=== PATIENT | male | born 1950 | race Asian ===

== ENCOUNTER 2016-09-18 15:43 | Inpatient (IN) | payer OTHER ==
[~2016-09-18] VITALS: Ht 165.1 cm; Wt 59.8 kg
[~2016-09-18 15:43] MED LIST: ALLO100T PO; AMLO-512 PO; ASPI81 PO; B CO1CAP4 PO; CARV12 PO; CLOP75 PO; INSLAN SQ; LABE100 PO; SEVEC800 PO; SIMV40TA5 PO; SUCR500T PO; [UNRECOGNIZED DRUG - OTHER] SQ
[2016-09-18] MEDS ORDERED: CINA60TA PO (16:06)
[2016-09-18] MEDS ORDERED: TRAM50TA4 PO (16:06)
[2016-09-18] MEDS ORDERED: COLC0.6T69 PO (16:06)
[2016-09-18] MEDS ORDERED: MECL-111 PO (16:06)
[2016-09-18] MEDS ORDERED: LOSA50TA37 PO (16:06)
[2016-09-18] MEDS ORDERED: GABA-529 PO (16:06)
[2016-09-18] MEDS ORDERED: ATOR40TA28 PO (16:06)
[2016-09-18] MEDS ORDERED: MONT10TA21 PO (16:06)
[2016-09-18] MEDS ORDERED: MIRT30 PO (16:06)
[2016-09-18 16:14] LABS: BASOPHILS % (AUTO) 0.3 % (0.0-2.0); EOSINOPHILS % (AUTO) 0.4 % (1.0-6.0); HEMATOCRIT 40.9 % (41-53); HEMOGLOBIN 12.2 g/dL (13.5-17.5); LYMPHOCYTES # (AUTO) 0.6 K/uL (1.0-4.8); LYMPHOCYTES % (AUTO) 3.2 % (22.0-44.0); MEAN CORPUSCULAR HEMOGLOBIN 24.6 pg (26.0-34.0); MEAN CORPUSCULAR HGB CONC 29.8 G/dL (31.0-37.0); MEAN CORPUSCULAR VOLUME 83 fL (80-100); MONOCYTES # (AUTO) 0.6 K/uL (0.1-1.0); MONOCYTES % (AUTO) 3.2 % (2.0-9.0); NEUTROPHILS # (AUTO) 16.2 K/uL (1.8-7.7); PLATELET COUNT (AUTO) 172 K/uL (150-450); RED BLOOD CELL COUNT(AUTO) 4.94 MIL/uL (4.50-5.90); RED CELL DISTRIBUTION WIDTH 24.1 % (11.5-14.5); WHITE BLOOD COUNT (AUTO) 17.4 K/uL (4.5-11.0)
[2016-09-18] MEDS ORDERED: ACETAMINOPHEN 1000 MG/ISO-OSM 100 ML IV ONE (16:15)
[2016-09-18 16:24] LABS: NEUTROPHILS % (AUTO) 92.9 % (40.0-70.0)
[2016-09-18 16:30] LABS: RBC MORPHOLOGY COMMENT ABNORMAL RBC MORPH
[2016-09-18 16:33] LABS: LACTIC ACID 1.3 mmol/L (0.4-2.0)
[2016-09-18 16:37] LABS: CALCIUM, TOTAL 9.2 mg/dL (8.8-10.5); CREATININE 6.2 mg/dL (0.60-1.30); POTASSIUM 4.4 mmol/L (3.5-5.1)
[2016-09-18 16:42] LABS: ALBUMIN 3.1 g/dL (3.4-5.0); BILIRUBIN,TOTAL 0.7 mg/dL (0.1-1.0); TOTAL PROTEIN, SERUM 7.1 g/dL (6.4-8.2)
[2016-09-18] MEDS ORDERED: VANCOMYCIN HCL 1 GM/D5% WATER 200 ML IV ONE (16:45)
[2016-09-18] MEDS ORDERED: LEVOFLOXACIN 750 MG/D5% WATER 150 ML IV ONE (16:45)
[2016-09-18 18:09] VITALS: BP 164/70
[2016-09-18 18:51] LABS: GLUCOSE,POINT OF CARE 132 MG/DL (70-110)
[2016-09-18 19:12] VITALS: BP 155/81
[2016-09-19 00:19] VITALS: BP 154/85
[2016-09-19] MEDS ORDERED: 0.9% SODIUM CHLORIDE 10 ML SYRINGE IVP PRN (01:15)
[2016-09-19] MEDS ORDERED: DEXTROSE 50%-WATER 25 GM/50 ML SYRINGE IVP PRN (01:15)
[2016-09-19] MEDS ORDERED: VANCOMYCIN HCL 500 MG in DEXTROSE 5%-WATER 100 ML IV ONE (01:30)
[2016-09-19] MEDS ORDERED: VANCOMYCIN HCL 1 GM/D5% WATER 200 ML IV PRN ×2 (01:30→11:30)
[2016-09-19] MEDS ORDERED: SODIUM CHLORIDE 0.9% 250 ML IV ONE (01:40)
[2016-09-19] MEDS: CARVEDILOL 12.5 MG TABLET PO SCH ×3 (01:44→21:07)
[2016-09-19] MEDS: TraMADol HCL 50 MG TABLET PO SCH ×3 (01:44→21:07)
[2016-09-19] MEDS: DOCUSATE SODIUM 100 MG CAPSULE PO SCH ×3 (01:44→21:07)
[2016-09-19 04:23] VITALS: BP 167/71
[2016-09-19 05:26] LABS: GLUCOSE,POINT OF CARE 111 MG/DL (70-110)
[2016-09-19] MEDS ORDERED: PIPERACILLIN SODIUM/TAZOBACTAM 2.25 GM in DEXTROSE 5%-WATER 50 ML IV SCH (06:00)
[2016-09-19 07:11] VITALS: BP 158/75
[2016-09-19] MEDS: SEVELAMER CARBONATE 800 MG TABLET PO SCH ×3 (08:00→18:00)
[2016-09-19] MEDS: MONTELUKAST SODIUM 10 MG TABLET PO SCH (09:00)
[2016-09-19] MEDS: ATORVASTATIN CALCIUM 40 MG TABLET PO SCH (09:00)
[2016-09-19] MEDS: MIRTAZAPINE 30 MG TABLET PO SCH (09:00)
[2016-09-19] MEDS: LOSARTAN POTASSIUM 50 MG TABLET PO SCH (09:00)
[2016-09-19] MEDS ORDERED: SUCROFERRIC OXYHYDROXIDE 500 MG PO SCH (09:00)
[2016-09-19] MEDS: GABAPENTIN 100 MG CAPSULE PO SCH (09:00)
[2016-09-19] MEDS ORDERED: VITAMIN B COMP/VIT C/FOLIC ACID CAPSULE PO SCH (09:15)
[2016-09-19] MEDS: -ZOSYN NOTE- MISC SCH (09:51)
[2016-09-19] MEDS: PANTOPRAZOLE SODIUM 40 MG/VIAL IVP SCH (10:22)
[2016-09-19] MEDS: CINACALCET HCL 30 MG TABLET PO SCH ×2 (10:22→18:00)
[2016-09-19] MEDS: ASPIRIN 81 MG CHEWABLE TABLET PO SCH (10:22)
[2016-09-19] MEDS: MECLIZINE HCL 25 MG TABLET PO SCH ×4 (10:23→21:07)
[2016-09-19] MEDS: OxyCODONE HCL/ACETAMINOPHEN 5-325 MG TABLET PO PRN ×2 (10:28→16:35)
[2016-09-19 11:43] VITALS: BP 147/66
[2016-09-19] MEDS: PIPERACILLIN SODIUM/TAZOBACTAM 0.75 GM in DEXTROSE 5%-WATER 50 ML IV PRN (15:29)
[2016-09-19 16:00] VITALS: BP 144/64
[2016-09-19] MEDS: VITAMIN B COMP/VIT C/FOLIC ACID CAPSULE PO SCH (16:22)
[2016-09-19 19:10] LABS: CREATINE KINASE MB 0.7 ng/mL (0-5); CREATINE KINASE, TOTAL 95 U/L (39-308)
[2016-09-19 19:20] VITALS: BP 138/64
[2016-09-19] MEDS: INSULIN DETEMIR 100 UNITS/ML SQ SCH (21:00)
[2016-09-19] MEDS: PIPERACILLIN SODIUM/TAZOBACTAM 2.25 GM in DEXTROSE 5%-WATER 50 ML IV SCH (21:06)
[2016-09-19 22:31] LABS: GLUCOSE,POINT OF CARE 151 MG/DL (70-110)
[2016-09-20] VITALS (7 sets, daily range): BP systolic 134–159; BP diastolic 55–72
[2016-09-20] MEDS: PIPERACILLIN SODIUM/TAZOBACTAM 2.25 GM in DEXTROSE 5%-WATER 50 ML IV SCH ×2 (05:59→18:34)
[2016-09-20 06:07] LABS: GLUCOSE,POINT OF CARE 125 MG/DL (70-110)
[2016-09-20 07:24] LABS: HEMATOCRIT 37.9 % (41-53); HEMOGLOBIN 11.4 g/dL (13.5-17.5); MEAN CORPUSCULAR HEMOGLOBIN 24.9 pg (26.0-34.0); MEAN CORPUSCULAR HGB CONC 30.1 G/dL (31.0-37.0); MEAN CORPUSCULAR VOLUME 83 fL (80-100); PLATELET COUNT (AUTO) 187 K/uL (150-450); RED BLOOD CELL COUNT(AUTO) 4.57 MIL/uL (4.50-5.90); RED CELL DISTRIBUTION WIDTH 23.4 % (11.5-14.5); WHITE BLOOD COUNT (AUTO) 19.6 K/uL (4.5-11.0)
[2016-09-20 07:25] LABS: INR 1.1 (0.9-1.1); PROTHROMBIN TIME 11.9 SEC (9.4-11.6)
[2016-09-20 07:46] LABS: ANION GAP 11 mmol/L (8-16); CALCIUM, TOTAL 8.6 mg/dL (8.8-10.5); CARBON DIOXIDE 28 mmol/L (22-29); CHLORIDE 96 mmol/L (98-107); CREATINE KINASE, TOTAL 72 U/L (39-308); CREATININE 6.26 mg/dL (0.60-1.30); GLOMERULAR FILTR. RATE CALC 9 mL/min (>60); PHOSPHORUS 5.1 mg/dL (2.5-4.9); POTASSIUM 4.9 mmol/L (3.5-5.1); SODIUM SERUM 135 mmol/L (136-145); THYROID STIMULATING HORMONE 2.65 uIU/mL (0.36-3.74); TOTAL PROTEIN, SERUM 6.9 g/dL (6.4-8.2); UREA NITROGEN, BLOOD 34 mg/dL (7-18)
[2016-09-20] MEDS: SEVELAMER CARBONATE 800 MG TABLET PO SCH ×3 (08:00→18:28)
[2016-09-20 08:01] LABS: LACTATE DEHYDROGENASE 197 U/L (85-227)
[2016-09-20 08:30] LABS: BAND NEUTROPHILS % (MANUAL) 3 % (1-5); LYMPHOCYTES % (MANUAL) 6 % (22-44); REACTIVE LYMPHOCYTES 4 % (0-0); TOTAL CELLS COUNTED 100; WBC MORPHOLOGY TOXIC GRAN
[2016-09-20] MEDS: MONTELUKAST SODIUM 10 MG TABLET PO SCH (08:40)
[2016-09-20] MEDS: ASPIRIN 81 MG CHEWABLE TABLET PO SCH (08:40)
[2016-09-20] MEDS: PANTOPRAZOLE SODIUM 40 MG/VIAL IVP SCH (08:40)
[2016-09-20] MEDS: VITAMIN B COMP/VIT C/FOLIC ACID CAPSULE PO SCH (08:40)
[2016-09-20] MEDS: TraMADol HCL 50 MG TABLET PO SCH ×2 (08:40→21:29)
[2016-09-20] MEDS: CARVEDILOL 12.5 MG TABLET PO SCH ×2 (08:40→21:25)
[2016-09-20] MEDS: MIRTAZAPINE 30 MG TABLET PO SCH (08:40)
[2016-09-20] MEDS: ATORVASTATIN CALCIUM 40 MG TABLET PO SCH (08:40)
[2016-09-20] MEDS: LOSARTAN POTASSIUM 50 MG TABLET PO SCH (08:40)
[2016-09-20] MEDS: DOCUSATE SODIUM 100 MG CAPSULE PO SCH ×2 (08:40→21:24)
[2016-09-20] MEDS: MECLIZINE HCL 25 MG TABLET PO SCH ×4 (08:41→21:24)
[2016-09-20] MEDS: GABAPENTIN 100 MG CAPSULE PO SCH (08:41)
[2016-09-20] MEDS: -ZOSYN NOTE- MISC SCH (08:42)
[2016-09-20 08:50] LABS: B-TYPE NATRIURETIC PEPTIDE 1630 pg/mL (0-100)
[2016-09-20 12:10] LABS: APPEARANCE,UNSPUN,BODY FLUID CLOUDY (CLEAR); COLOR,BODY FLUID RED (LT YELLOW)
[2016-09-20 12:31] LABS: PH, BODY FLUID 7
[2016-09-20 12:37] LABS: CREATINE KINASE, TOTAL 63 U/L (39-308)
[2016-09-20] MEDS: CINACALCET HCL 30 MG TABLET PO SCH ×2 (12:46→18:28)
[2016-09-20] MEDS: CALCIUM ACETATE 667 MG CAPSULE PO SCH ×2 (12:46→18:28)
[2016-09-20 15:57] LABS: ABG A-A DIFF O2 88.9 mmHg (10-20.0); ABG BASE EXCESS -2.4 mmol/L (-2.0-3.0); ABG HCO3 22.7 mmol/L (22.0-26.0); ABG OXYHEMOGLOBIN 92.3 % (94.0-100.0); ABG PCO2 37 mmHg (35-45); ABG PH 7.403 (7.35-7.450); TEMPERATURE, FAHRENHEIT, BG 97.6 FAHREN (96.0-98.6)
[2016-09-20 15:58] LABS: ALLEN TEST, BLOOD GAS Positive
[2016-09-20] MEDS: INSULIN ASPART 100 UNITS/ML SQ PRN ×2 (18:27→21:40)
[2016-09-20] MEDS ORDERED: SODIUM CHLORIDE 0.9% 250 ML IV ONE (18:33)
[2016-09-20] MEDS: INSULIN DETEMIR 100 UNITS/ML SQ SCH (21:36)
[2016-09-21 04:35] VITALS: BP 130/55
[2016-09-21] MEDS: PIPERACILLIN SODIUM/TAZOBACTAM 2.25 GM in DEXTROSE 5%-WATER 50 ML IV SCH ×2 (05:31→17:41)
[2016-09-21 07:12] VITALS: BP 134/66
[2016-09-21 08:08] LABS: EOSINOPHILS % (AUTO) 0.8 % (1.0-6.0); HEMATOCRIT 32.6 % (41-53); HEMOGLOBIN 9.9 g/dL (13.5-17.5); LYMPHOCYTES % (AUTO) 6.5 % (22.0-44.0); MEAN CORPUSCULAR HEMOGLOBIN 24.7 pg (26.0-34.0); MEAN CORPUSCULAR HGB CONC 30.3 G/dL (31.0-37.0); MEAN CORPUSCULAR VOLUME 82 fL (80-100); MONOCYTES # (AUTO) 0.9 K/uL (0.1-1.0); MONOCYTES % (AUTO) 5.7 % (2.0-9.0); NEUTROPHILS # (AUTO) 13.8 K/uL (1.8-7.7); PLATELET COUNT (AUTO) 171 K/uL (150-450); RED CELL DISTRIBUTION WIDTH 22.6 % (11.5-14.5); WHITE BLOOD COUNT (AUTO) 15.9 K/uL (4.5-11.0)
[2016-09-21] MEDS ORDERED: ALBUMIN HUMAN 25%-12.5GM/50ML IV BOTTLE IV PRN (08:15)
[2016-09-21] MEDS ORDERED: MANNITOL 25%-12.5 GM/50 ML VIAL IVP PRN (08:15)
[2016-09-21 08:17] LABS: CREATININE 7.34 mg/dL (0.60-1.30); POTASSIUM 4.9 mmol/L (3.5-5.1)
[2016-09-21 08:18] LABS: MAGNESIUM 2.2 mg/dL (1.80-2.40); PHOSPHORUS 3.4 mg/dL (2.5-4.9)
[2016-09-21] MEDS: -ZOSYN NOTE- MISC SCH (09:00)
[2016-09-21 10:02] LABS: RBC MORPHOLOGY COMMENT ABNORMAL RBC MORPH
[2016-09-21] MEDS: SEVELAMER CARBONATE 800 MG TABLET PO SCH ×3 (10:13→17:47)
[2016-09-21] MEDS: GABAPENTIN 100 MG CAPSULE PO SCH (10:14)
[2016-09-21] MEDS: TraMADol HCL 50 MG TABLET PO SCH ×2 (10:14→21:29)
[2016-09-21] MEDS: MECLIZINE HCL 25 MG TABLET PO SCH ×4 (10:14→21:29)
[2016-09-21] MEDS: DOCUSATE SODIUM 100 MG CAPSULE PO SCH ×2 (10:14→21:29)
[2016-09-21] MEDS: CINACALCET HCL 30 MG TABLET PO SCH ×2 (10:14→17:48)
[2016-09-21] MEDS: MIRTAZAPINE 30 MG TABLET PO SCH (10:14)
[2016-09-21] MEDS: VITAMIN B COMP/VIT C/FOLIC ACID CAPSULE PO SCH (10:14)
[2016-09-21] MEDS: ATORVASTATIN CALCIUM 40 MG TABLET PO SCH (10:14)
[2016-09-21] MEDS: CALCIUM ACETATE 667 MG CAPSULE PO SCH ×3 (10:14→17:47)
[2016-09-21] MEDS: MONTELUKAST SODIUM 10 MG TABLET PO SCH (10:14)
[2016-09-21] MEDS ORDERED: SODIUM CHLORIDE 0.9% 250 ML IV ONE (10:56)
[2016-09-21] MEDS ORDERED: VANCOMYCIN HCL 1 GM/D5% WATER 200 ML IV ONE (11:00)
[2016-09-21] MEDS: PIPERACILLIN SODIUM/TAZOBACTAM 0.75 GM in DEXTROSE 5%-WATER 50 ML IV PRN (11:01)
[2016-09-21] MEDS: PANTOPRAZOLE SODIUM 40 MG/VIAL IVP SCH (11:02)
[2016-09-21] MEDS: CARVEDILOL 12.5 MG TABLET PO SCH ×2 (11:02→21:29)
[2016-09-21] MEDS: ASPIRIN 81 MG CHEWABLE TABLET PO SCH (11:02)
[2016-09-21] MEDS: LOSARTAN POTASSIUM 50 MG TABLET PO SCH (11:02)
[2016-09-21 11:23] VITALS: BP 144/64
[2016-09-21] MEDS ORDERED: BISACODYL 10 MG RECTAL RECTAL SUPPOSITORY PR PRN (13:00)
[2016-09-21 16:48] VITALS: BP 158/69
[2016-09-21 16:54] LABS: TOTAL PROTEIN,BODY FLUID,REF 4.7 g/dL
[2016-09-21] MEDS: INSULIN ASPART 100 UNITS/ML SQ PRN (17:40)
[2016-09-21 18:17] LABS: GLUCOSE,POINT OF CARE 176 MG/DL (70-110)
[2016-09-21 18:17] LABS: GLUCOSE COMMENT 1 Received Meds; GLUCOSE,POINT OF CARE 176 MG/DL (70-110)
[2016-09-21 18:17] LABS: GLUCOSE,POINT OF CARE 125 MG/DL (70-110)
[2016-09-21 18:17] LABS: GLUCOSE COMMENT 1 Received Meds; GLUCOSE,POINT OF CARE 185 MG/DL (70-110)
[2016-09-21 18:17] LABS: GLUCOSE,POINT OF CARE 66 MG/DL (70-110)
[2016-09-21 18:17] LABS: GLUCOSE,POINT OF CARE 102 MG/DL (70-110)
[2016-09-21 18:17] LABS: GLUCOSE,POINT OF CARE 104 MG/DL (70-110)
[2016-09-21 18:17] LABS: GLUCOSE COMMENT 1 Juice/Food/D50 Given; GLUCOSE,POINT OF CARE 141 MG/DL (70-110)
[2016-09-21 19:02] VITALS: BP 150/60
[2016-09-21] MEDS: INSULIN DETEMIR 100 UNITS/ML SQ SCH (21:32)
[2016-09-21 23:42] VITALS: BP 158/80
[2016-09-22] VITALS (8 sets, daily range): BP systolic 157–189; BP diastolic 68–97
[2016-09-22] MEDS: CeFAZolin 1 GM/DEXTROSE 50 ML IV SCH (05:34)
[2016-09-22] MEDS: SEVELAMER CARBONATE 800 MG TABLET PO SCH ×3 (08:11→18:29)
[2016-09-22] MEDS: CINACALCET HCL 30 MG TABLET PO SCH ×2 (08:11→18:29)
[2016-09-22] MEDS: DOCUSATE SODIUM 100 MG CAPSULE PO SCH ×2 (08:12→21:19)
[2016-09-22] MEDS: MONTELUKAST SODIUM 10 MG TABLET PO SCH (08:12)
[2016-09-22] MEDS: TraMADol HCL 50 MG TABLET PO SCH (08:12)
[2016-09-22] MEDS: LOSARTAN POTASSIUM 50 MG TABLET PO SCH (08:12)
[2016-09-22] MEDS: ATORVASTATIN CALCIUM 40 MG TABLET PO SCH (08:12)
[2016-09-22] MEDS: CALCIUM ACETATE 667 MG CAPSULE PO SCH ×3 (08:12→18:29)
[2016-09-22] MEDS: MECLIZINE HCL 25 MG TABLET PO SCH ×4 (08:13→21:19)
[2016-09-22] MEDS: VITAMIN B COMP/VIT C/FOLIC ACID CAPSULE PO SCH (08:13)
[2016-09-22] MEDS: PANTOPRAZOLE SODIUM 40 MG/VIAL IVP SCH (08:13)
[2016-09-22] MEDS: ASPIRIN 81 MG CHEWABLE TABLET PO SCH (08:13)
[2016-09-22] MEDS: MIRTAZAPINE 30 MG TABLET PO SCH (08:15)
[2016-09-22] MEDS: GABAPENTIN 100 MG CAPSULE PO SCH (08:15)
[2016-09-22] MEDS: CARVEDILOL 12.5 MG TABLET PO SCH ×2 (08:19→21:19)
[2016-09-22 09:31] LABS: CALCIUM, TOTAL 9.7 mg/dL (8.8-10.5); CREATININE 5.88 mg/dL (0.60-1.30); POTASSIUM 4.9 mmol/L (3.5-5.1)
[2016-09-22] MEDS: INSULIN ASPART 100 UNITS/ML SQ PRN (12:45)
[2016-09-22] MEDS: OxyCODONE HCL/ACETAMINOPHEN 5-325 MG TABLET PO PRN (19:53)
[2016-09-22] MEDS: INSULIN DETEMIR 100 UNITS/ML SQ SCH (21:00)
[2016-09-23] VITALS (7 sets, daily range): BP systolic 130–158; BP diastolic 35–69
[2016-09-23] MEDS: ONDANSETRON HCL 4 MG/2 ML VIAL IVP PRN (04:53)
[2016-09-23] MEDS: OxyCODONE HCL/ACETAMINOPHEN 5-325 MG TABLET PO PRN (06:10)
[2016-09-23] MEDS: CeFAZolin 1 GM/DEXTROSE 50 ML IV SCH (06:10)
[2016-09-23] MEDS: INSULIN ASPART 100 UNITS/ML SQ PRN ×2 (06:15→12:47)
[2016-09-23 06:42] LABS: GLUCOSE,POINT OF CARE 107 MG/DL (70-110)
[2016-09-23 06:42] LABS: GLUCOSE COMMENT 1 Received Meds; GLUCOSE,POINT OF CARE 161 MG/DL (70-110)
[2016-09-23 06:42] LABS: GLUCOSE,POINT OF CARE 143 MG/DL (70-110)
[2016-09-23 06:42] LABS: GLUCOSE,POINT OF CARE 99 MG/DL (70-110)
[2016-09-23 06:42] LABS: GLUCOSE COMMENT 1 Received Meds; GLUCOSE,POINT OF CARE 152 MG/DL (70-110)
[2016-09-23 06:43] LABS: GLUCOSE COMMENT 1 Received Meds; GLUCOSE,POINT OF CARE 174 MG/DL (70-110)
[2016-09-23 06:43] LABS: GLUCOSE,POINT OF CARE 104 MG/DL (70-110)
[2016-09-23 06:43] LABS: GLUCOSE,POINT OF CARE 116 MG/DL (70-110)
[2016-09-23 08:37] LABS: CALCIUM, TOTAL 9.2 mg/dL (8.8-10.5); CREATININE 7.57 mg/dL (0.60-1.30)
[2016-09-23] MEDS: VITAMIN B COMP/VIT C/FOLIC ACID CAPSULE PO SCH (08:38)
[2016-09-23] MEDS: MONTELUKAST SODIUM 10 MG TABLET PO SCH (08:38)
[2016-09-23] MEDS: CARVEDILOL 12.5 MG TABLET PO SCH ×2 (08:38→20:25)
[2016-09-23] MEDS: ATORVASTATIN CALCIUM 40 MG TABLET PO SCH (08:38)
[2016-09-23] MEDS: LOSARTAN POTASSIUM 50 MG TABLET PO SCH (08:38)
[2016-09-23] MEDS: SEVELAMER CARBONATE 800 MG TABLET PO SCH ×3 (08:38→18:23)
[2016-09-23] MEDS: CINACALCET HCL 30 MG TABLET PO SCH ×2 (08:38→18:23)
[2016-09-23] MEDS: CALCIUM ACETATE 667 MG CAPSULE PO SCH ×3 (08:38→18:23)
[2016-09-23] MEDS: GABAPENTIN 100 MG CAPSULE PO SCH (08:39)
[2016-09-23] MEDS: MIRTAZAPINE 30 MG TABLET PO SCH (08:39)
[2016-09-23] MEDS: ASPIRIN 81 MG CHEWABLE TABLET PO SCH (08:44)
[2016-09-23] MEDS: PANTOPRAZOLE SODIUM 40 MG/VIAL IVP SCH (08:44)
[2016-09-23] MEDS: MECLIZINE HCL 25 MG TABLET PO SCH ×4 (08:45→20:25)
[2016-09-23] MEDS: DOCUSATE SODIUM 100 MG CAPSULE PO SCH ×2 (08:45→21:00)
[2016-09-23 09:14] LABS: POTASSIUM 5.9 mmol/L (3.5-5.1)
[2016-09-23] MEDS: LOPERAMIDE HCL 2 MG CAPSULE PO PRN ×2 (10:58→20:25)
[2016-09-23] MEDS ORDERED: SODIUM POLYSTYRENE SULFONATE 15 GM/60 ML SUSPENSION BOTTLE PO ONE (12:15)
[2016-09-23] MEDS: MetroNIDAZOLE 500 MG TABLET PO SCH ×3 (12:41→23:31)
[2016-09-23 17:52] LABS: GLUCOSE COMMENT 1 Received Meds; GLUCOSE,POINT OF CARE 182 MG/DL (70-110)
[2016-09-23 17:53] LABS: GLUCOSE,POINT OF CARE 129 MG/DL (70-110)
[2016-09-23 18:01] LABS: GLUCOSE,POINT OF CARE 104 MG/DL (70-110)
[2016-09-23] MEDS: INSULIN DETEMIR 100 UNITS/ML SQ SCH (21:00)
[2016-09-23] MEDS ORDERED: LACTOBACILLUS ACIDOPHILUS/BULGARICUS GRANULES PACKET PO ONE (23:00)
[2016-09-24 04:29] VITALS: BP 163/73
[2016-09-24] MEDS: OxyCODONE HCL/ACETAMINOPHEN 5-325 MG TABLET PO PRN (05:29)
[2016-09-24] MEDS: CeFAZolin 1 GM/DEXTROSE 50 ML IV SCH (05:29)
[2016-09-24 06:07] LABS: CALCIUM, TOTAL 8.6 mg/dL (8.8-10.5); CREATININE 8.74 mg/dL (0.60-1.30)
[2016-09-24 06:13] LABS: BASOPHILS # (AUTO) 0.02 K/uL (0.00-0.20); BASOPHILS % (AUTO) 0.2 % (0.0-2.0); EOSINOPHILS # (AUTO) 0.33 K/uL (0.00-0.70); EOSINOPHILS % (AUTO) 3.28 % (1.0-6.0); HEMATOCRIT 37.6 % (41-53); HEMOGLOBIN 11.6 g/dL (13.5-17.5); LYMPHOCYTES # (AUTO) 1.5 K/uL (1.0-4.8); LYMPHOCYTES % (AUTO) 14.5 % (22.0-44.0); MEAN CORPUSCULAR HEMOGLOBIN 24.3 pg (26.0-34.0); MEAN CORPUSCULAR HGB CONC 30.8 G/dL (31.0-37.0); MEAN CORPUSCULAR VOLUME 79 fL (80-100); MONOCYTES # (AUTO) 1.1 K/uL (0.1-1.0); MONOCYTES % (AUTO) 10.5 % (2.0-9.0); NEUTROPHILS # (AUTO) 7.2 K/uL (1.8-7.7); NEUTROPHILS % (AUTO) 71.6 % (40.0-70.0); PLATELET COUNT (AUTO) 259 K/uL (150-450); RED BLOOD CELL COUNT(AUTO) 4.76 MIL/uL (4.50-5.90); RED CELL DISTRIBUTION WIDTH 23.4 % (11.5-14.5)
[2016-09-24] MEDS ORDERED: SODIUM CHLORIDE 0.9% 2,000 ML IV ONE (06:19)
[2016-09-24 06:22] LABS: POTASSIUM 5.9 mmol/L (3.5-5.1)
[2016-09-24] MEDS ORDERED: MANNITOL 25%-12.5 GM/50 ML VIAL IVP PRN (06:30)
[2016-09-24 07:08] VITALS: BP 162/72
[2016-09-24] MEDS: CALCIUM ACETATE 667 MG CAPSULE PO SCH ×3 (07:44→17:29)
[2016-09-24] MEDS: SEVELAMER CARBONATE 800 MG TABLET PO SCH ×3 (07:44→17:29)
[2016-09-24] MEDS: CINACALCET HCL 30 MG TABLET PO SCH (07:45)
[2016-09-24] MEDS: MetroNIDAZOLE 500 MG TABLET PO SCH ×2 (07:58→15:20)
[2016-09-24] MEDS: PANTOPRAZOLE SODIUM 40 MG/VIAL IVP SCH (08:51)
[2016-09-24] MEDS: MONTELUKAST SODIUM 10 MG TABLET PO SCH (08:51)
[2016-09-24] MEDS: LOSARTAN POTASSIUM 50 MG TABLET PO SCH (08:52)
[2016-09-24] MEDS: MECLIZINE HCL 25 MG TABLET PO SCH ×4 (08:52→20:41)
[2016-09-24] MEDS: GABAPENTIN 100 MG CAPSULE PO SCH (08:52)
[2016-09-24] MEDS: ATORVASTATIN CALCIUM 40 MG TABLET PO SCH (08:52)
[2016-09-24] MEDS: MIRTAZAPINE 30 MG TABLET PO SCH (08:52)
[2016-09-24] MEDS: ASPIRIN 81 MG CHEWABLE TABLET PO SCH (08:52)
[2016-09-24] MEDS: CARVEDILOL 12.5 MG TABLET PO SCH ×2 (08:52→20:41)
[2016-09-24] MEDS: DOCUSATE SODIUM 100 MG CAPSULE PO SCH ×2 (08:52→21:00)
[2016-09-24] MEDS: VITAMIN B COMP/VIT C/FOLIC ACID CAPSULE PO SCH (08:52)
[2016-09-24] MEDS: LACTOBACILLUS ACIDOPHILUS/BULGARICUS GRANULES PACKET PO SCH ×4 (08:55→20:40)
[2016-09-24 09:06] LABS: RBC MORPHOLOGY COMMENT ABNORMAL RBC MORPH
[2016-09-24] MEDS ORDERED: SODIUM CHLORIDE 0.9% 4,000 ML IV ONE (10:49)
[2016-09-24 11:41] VITALS: BP 155/52
[2016-09-24] MEDS: INSULIN ASPART 100 UNITS/ML SQ PRN ×2 (11:54→20:47)
[2016-09-24 16:16] VITALS: BP 134/67
[2016-09-24 17:32] LABS: GLUCOSE,POINT OF CARE 140 MG/DL (70-110)
[2016-09-24 17:32] LABS: GLUCOSE COMMENT 1 Received Meds; GLUCOSE,POINT OF CARE 125 MG/DL (70-110)
[2016-09-24 17:36] LABS: GLUCOSE COMMENT 1 Received Meds; GLUCOSE,POINT OF CARE 135 MG/DL (70-110)
[2016-09-24 20:08] VITALS: BP 156/68
[2016-09-24] MEDS: INSULIN DETEMIR 100 UNITS/ML SQ SCH (20:46)
[2016-09-24 23:43] VITALS: BP 154/60
[2016-09-25] MEDS: MetroNIDAZOLE 500 MG TABLET PO SCH ×4 (00:11→23:04)
[2016-09-25 04:01] VITALS: BP 149/63
[2016-09-25] MEDS: CeFAZolin 1 GM/DEXTROSE 50 ML IV SCH (05:47)
[2016-09-25 07:04] LABS: BASOPHILS # (AUTO) 0.09 K/uL (0.00-0.20); BASOPHILS % (AUTO) 0.7 % (0.0-2.0); EOSINOPHILS # (AUTO) 0.44 K/uL (0.00-0.70); EOSINOPHILS % (AUTO) 3.35 % (1.0-6.0); HEMATOCRIT 43.6 % (41-53); LYMPHOCYTES # (AUTO) 1.5 K/uL (1.0-4.8); LYMPHOCYTES % (AUTO) 11.5 % (22.0-44.0); MEAN CORPUSCULAR HEMOGLOBIN 23.9 pg (26.0-34.0); MEAN CORPUSCULAR HGB CONC 29.9 G/dL (31.0-37.0); MEAN CORPUSCULAR VOLUME 80 fL (80-100); MONOCYTES % (AUTO) 7.8 % (2.0-9.0); NEUTROPHILS % (AUTO) 76.6 % (40.0-70.0); PLATELET COUNT (AUTO) 291 K/uL (150-450); RED BLOOD CELL COUNT(AUTO) 5.45 MIL/uL (4.50-5.90); RED CELL DISTRIBUTION WIDTH 23.8 % (11.5-14.5); WHITE BLOOD COUNT (AUTO) 13.1 K/uL (4.5-11.0)
[2016-09-25 07:11] VITALS: BP 146/65
[2016-09-25 07:51] LABS: CREATININE 6.93 mg/dL (0.60-1.30); MAGNESIUM 2.1 mg/dL (1.80-2.40)
[2016-09-25 08:04] LABS: CALCIUM, TOTAL 8.8 mg/dL (8.8-10.5)
[2016-09-25 08:31] LABS: GLUCOSE COMMENT 1 Received Meds; GLUCOSE,POINT OF CARE 204 MG/DL (70-110)
[2016-09-25 08:36] LABS: GLUCOSE COMMENT 1 Juice/Food/D50 Given; GLUCOSE,POINT OF CARE 61 MG/DL (70-110)
[2016-09-25 08:36] LABS: GLUCOSE COMMENT 1 Juice/Food/D50 Given; GLUCOSE,POINT OF CARE 58 MG/DL (70-110)
[2016-09-25 08:36] LABS: GLUCOSE,POINT OF CARE 87 MG/DL (70-110)
[2016-09-25 08:36] LABS: GLUCOSE COMMENT 1 Juice/Food/D50 Given; GLUCOSE,POINT OF CARE 68 MG/DL (70-110)
[2016-09-25] MEDS: CALCIUM ACETATE 667 MG CAPSULE PO SCH ×3 (09:14→17:35)
[2016-09-25] MEDS: SEVELAMER CARBONATE 800 MG TABLET PO SCH ×3 (09:14→17:35)
[2016-09-25] MEDS: ASPIRIN 81 MG CHEWABLE TABLET PO SCH (09:15)
[2016-09-25] MEDS: MECLIZINE HCL 25 MG TABLET PO SCH ×2 (09:15→12:26)
[2016-09-25] MEDS: VITAMIN B COMP/VIT C/FOLIC ACID CAPSULE PO SCH (09:15)
[2016-09-25] MEDS: MIRTAZAPINE 30 MG TABLET PO SCH (09:15)
[2016-09-25] MEDS: CINACALCET HCL 30 MG TABLET PO SCH (09:15)
[2016-09-25] MEDS: DOCUSATE SODIUM 100 MG CAPSULE PO SCH (09:15)
[2016-09-25] MEDS: PANTOPRAZOLE SODIUM 40 MG/VIAL IVP SCH (09:15)
[2016-09-25] MEDS: ATORVASTATIN CALCIUM 40 MG TABLET PO SCH (09:15)
[2016-09-25] MEDS: CARVEDILOL 12.5 MG TABLET PO SCH ×2 (09:15→20:17)
[2016-09-25] MEDS: LOSARTAN POTASSIUM 50 MG TABLET PO SCH (09:15)
[2016-09-25] MEDS: GABAPENTIN 100 MG CAPSULE PO SCH (09:15)
[2016-09-25] MEDS: LACTOBACILLUS ACIDOPHILUS/BULGARICUS GRANULES PACKET PO SCH ×4 (09:16→20:18)
[2016-09-25] MEDS: MONTELUKAST SODIUM 10 MG TABLET PO SCH (09:16)
[2016-09-25 10:55] LABS: RBC MORPHOLOGY COMMENT ABNORMAL RBC MORPH
[2016-09-25 10:59] VITALS: BP 146/62
[2016-09-25] MEDS ORDERED: MECLIZINE HCL 25 MG TABLET PO PRN (16:00)
[2016-09-25 16:02] VITALS: BP 143/64
[2016-09-25] MEDS: INSULIN ASPART 100 UNITS/ML SQ PRN (18:18)
[2016-09-25 20:21] VITALS: BP 124/64
[2016-09-25] MEDS: INSULIN DETEMIR 100 UNITS/ML SQ SCH (23:06)
[2016-09-25 23:44] VITALS: BP 145/66
[2016-09-26] MEDS: ONDANSETRON HCL 4 MG/2 ML VIAL IVP PRN (01:21)
[2016-09-26 04:41] VITALS: BP 147/74
[2016-09-26] MEDS ORDERED: SODIUM CHLORIDE 0.9% 250 ML IV ONE (05:05)
[2016-09-26] MEDS: CeFAZolin 1 GM/DEXTROSE 50 ML IV SCH (05:40)
[2016-09-26 06:19] LABS: BASOPHILS % (AUTO) 0.1 % (0.0-2.0); EOSINOPHILS % (AUTO) 1.9 % (1.0-6.0); HEMATOCRIT 38.6 % (41-53); HEMOGLOBIN 11.7 g/dL (13.5-17.5); LYMPHOCYTES # (AUTO) 1.4 K/uL (1.0-4.8); LYMPHOCYTES % (AUTO) 7.2 % (22.0-44.0); MEAN CORPUSCULAR HEMOGLOBIN 24.1 pg (26.0-34.0); MEAN CORPUSCULAR HGB CONC 30.2 G/dL (31.0-37.0); MEAN CORPUSCULAR VOLUME 80 fL (80-100); MONOCYTES # (AUTO) 0.8 K/uL (0.1-1.0); MONOCYTES % (AUTO) 4.3 % (2.0-9.0); NEUTROPHILS # (AUTO) 16.6 K/uL (1.8-7.7); PLATELET COUNT (AUTO) 309 K/uL (150-450); RED BLOOD CELL COUNT(AUTO) 4.84 MIL/uL (4.50-5.90); RED CELL DISTRIBUTION WIDTH 23.3 % (11.5-14.5); WHITE BLOOD COUNT (AUTO) 19.2 K/uL (4.5-11.0)
[2016-09-26 06:32] LABS: CALCIUM, TOTAL 8.5 mg/dL (8.8-10.5); CREATININE 8.64 mg/dL (0.60-1.30); PHOSPHORUS 2.5 mg/dL (2.5-4.9); POTASSIUM 5.2 mmol/L (3.5-5.1)
[2016-09-26 06:33] LABS: MAGNESIUM 2.1 mg/dL (1.80-2.40)
[2016-09-26 06:51] LABS: NEUTROPHILS % (AUTO) 86.5 % (40.0-70.0)
[2016-09-26] MEDS: SEVELAMER CARBONATE 800 MG TABLET PO SCH ×3 (08:00→18:43)
[2016-09-26] MEDS: CALCIUM ACETATE 667 MG CAPSULE PO SCH ×3 (08:00→18:43)
[2016-09-26 08:18] VITALS: BP 153/65
[2016-09-26] MEDS ORDERED: DiphenhydrAMINE HCL 50 MG/ML VIAL IVP PRN (08:30)
[2016-09-26] MEDS ORDERED: LIDOCAINE HCL/PF 1% 2 ML VIAL ID PRN (08:30)
[2016-09-26 09:10] LABS: RBC MORPHOLOGY COMMENT ABNORMAL RBC MORPH
[2016-09-26] MEDS: MetroNIDAZOLE 500 MG TABLET PO SCH ×2 (09:58→18:42)
[2016-09-26 11:42] VITALS: BP 110/63
[2016-09-26] MEDS: CINACALCET HCL 30 MG TABLET PO SCH (12:14)
[2016-09-26] MEDS: ASPIRIN 81 MG CHEWABLE TABLET PO SCH (12:15)
[2016-09-26] MEDS: PANTOPRAZOLE SODIUM 40 MG/VIAL IVP SCH (12:15)
[2016-09-26] MEDS: ATORVASTATIN CALCIUM 40 MG TABLET PO SCH (12:15)
[2016-09-26] MEDS: LACTOBACILLUS ACIDOPHILUS/BULGARICUS GRANULES PACKET PO SCH ×4 (12:16→22:34)
[2016-09-26] MEDS: MONTELUKAST SODIUM 10 MG TABLET PO SCH (12:16)
[2016-09-26] MEDS: VITAMIN B COMP/VIT C/FOLIC ACID CAPSULE PO SCH (12:16)
[2016-09-26] MEDS: MIRTAZAPINE 30 MG TABLET PO SCH (12:17)
[2016-09-26] MEDS: CARVEDILOL 12.5 MG TABLET PO SCH ×3 (13:20→21:26)
[2016-09-26] MEDS: LOSARTAN POTASSIUM 50 MG TABLET PO SCH (13:20)
[2016-09-26] MEDS: INSULIN ASPART 100 UNITS/ML SQ PRN ×2 (18:45→21:29)
[2016-09-26 19:35] VITALS: BP 95/56
[2016-09-26] MEDS: INSULIN DETEMIR 100 UNITS/ML SQ SCH (21:00)
[2016-09-26] MEDS: MIRTAZAPINE 15 MG TABLET PO SCH (21:26)
[2016-09-26 23:57] LABS: GLUCOSE COMMENT 1 Received Meds; GLUCOSE,POINT OF CARE 201 MG/DL (70-110)
[2016-09-26 23:57] LABS: GLUCOSE COMMENT 1 Received Meds; GLUCOSE,POINT OF CARE 183 MG/DL (70-110)
[2016-09-27] VITALS (8 sets, daily range): BP systolic 103–147; BP diastolic 58–73
[2016-09-27] MEDS: MetroNIDAZOLE 500 MG TABLET PO SCH ×4 (00:25→23:44)
[2016-09-27] MEDS: CeFAZolin 1 GM/DEXTROSE 50 ML IV SCH (06:01)
[2016-09-27] MEDS ORDERED: SODIUM CHLORIDE 0.9% 250 ML IV ONE (06:06)
[2016-09-27] MEDS: INSULIN ASPART 100 UNITS/ML SQ PRN ×3 (06:08→22:03)
[2016-09-27 06:56] LABS: GLUCOSE,POINT OF CARE 173 MG/DL (70-110)
[2016-09-27 06:56] LABS: GLUCOSE,POINT OF CARE 164 MG/DL (70-110)
[2016-09-27 06:56] LABS: GLUCOSE COMMENT 1 Received Meds; GLUCOSE,POINT OF CARE 146 MG/DL (70-110)
[2016-09-27 07:21] LABS: GLUCOSE COMMENT 1 Received Meds; GLUCOSE,POINT OF CARE 151 MG/DL (70-110)
[2016-09-27] MEDS: PANTOPRAZOLE SODIUM 40 MG/VIAL IVP SCH (08:24)
[2016-09-27] MEDS: CALCIUM ACETATE 667 MG CAPSULE PO SCH ×3 (08:25→18:04)
[2016-09-27] MEDS: ATORVASTATIN CALCIUM 40 MG TABLET PO SCH (08:25)
[2016-09-27] MEDS: SEVELAMER CARBONATE 800 MG TABLET PO SCH ×3 (08:25→18:04)
[2016-09-27] MEDS: MONTELUKAST SODIUM 10 MG TABLET PO SCH (08:25)
[2016-09-27] MEDS: LACTOBACILLUS ACIDOPHILUS/BULGARICUS GRANULES PACKET PO SCH ×4 (08:25→21:58)
[2016-09-27] MEDS: VITAMIN B COMP/VIT C/FOLIC ACID CAPSULE PO SCH (08:25)
[2016-09-27] MEDS: ASPIRIN 81 MG CHEWABLE TABLET PO SCH (08:25)
[2016-09-27] MEDS: CINACALCET HCL 30 MG TABLET PO SCH (08:25)
[2016-09-27] MEDS: CARVEDILOL 12.5 MG TABLET PO SCH ×2 (08:25→21:58)
[2016-09-27] MEDS: LOSARTAN POTASSIUM 50 MG TABLET PO SCH (08:26)
[2016-09-27] MEDS ORDERED: AMIODARONE HCL 150 MG in DEXTROSE 5%-WATER 97 ML IV ONE (13:20)
[2016-09-27] MEDS ORDERED: AMIODARONE HCL 360 MG in DEXTROSE 5%-WATER 242.8 ML IV ONE (13:30)
[2016-09-27 13:56] LABS: GLUCOSE,POINT OF CARE 138 MG/DL (70-110)
[2016-09-27 17:12] LABS: BASOPHILS % (AUTO) 0.2 % (0.0-2.0); EOSINOPHILS % (AUTO) 1.7 % (1.0-6.0); HEMATOCRIT 39.6 % (41-53); LYMPHOCYTES % (AUTO) 9.8 % (22.0-44.0); MEAN CORPUSCULAR HEMOGLOBIN 23.7 pg (26.0-34.0); MEAN CORPUSCULAR HGB CONC 30.3 G/dL (31.0-37.0); MEAN CORPUSCULAR VOLUME 78 fL (80-100); MONOCYTES # (AUTO) 0.8 K/uL (0.1-1.0); MONOCYTES % (AUTO) 4.2 % (2.0-9.0); NEUTROPHILS # (AUTO) 16.8 K/uL (1.8-7.7); NEUTROPHILS % (AUTO) 84.1 % (40.0-70.0); PLATELET COUNT (AUTO) 350 K/uL (150-450); RED BLOOD CELL COUNT(AUTO) 5.06 MIL/uL (4.50-5.90); RED CELL DISTRIBUTION WIDTH 23.9 % (11.5-14.5)
[2016-09-27 17:16] LABS: CALCIUM, TOTAL 8.6 mg/dL (8.8-10.5); CREATININE 9.16 mg/dL (0.60-1.30); POTASSIUM 5.2 mmol/L (3.5-5.1)
[2016-09-27 17:24] LABS: ALBUMIN 2.3 g/dL (3.4-5.0); BILIRUBIN,TOTAL 0.3 mg/dL (0.1-1.0); TOTAL PROTEIN, SERUM 6.9 g/dL (6.4-8.2)
[2016-09-27] MEDS ORDERED: AMIODARONE HCL 540 MG in DEXTROSE 5%-WATER 239.2 ML IV ONE (19:30)
[2016-09-27] MEDS: INSULIN DETEMIR 100 UNITS/ML SQ SCH (21:00)
[2016-09-27] MEDS: MIRTAZAPINE 15 MG TABLET PO SCH (21:58)
[2016-09-27 22:46] LABS: GLUCOSE COMMENT 1 Received Meds; GLUCOSE,POINT OF CARE 215 MG/DL (70-110)
[2016-09-28 04:29] VITALS: BP 137/85
[2016-09-28] MEDS: INSULIN ASPART 100 UNITS/ML SQ PRN ×4 (06:35→20:47)
[2016-09-28 07:16] LABS: ALBUMIN 2.3 g/dL (3.4-5.0); ANION GAP 12 mmol/L (8-16); ASPARTATE AMINOTRANSFERASE 17 U/L (15-37); BILIRUBIN,TOTAL 0.4 mg/dL (0.1-1.0); CALCIUM, TOTAL 8.4 mg/dL (8.8-10.5); CARBON DIOXIDE 23 mmol/L (22-29); CHLORIDE 92 mmol/L (98-107); POTASSIUM 5.4 mmol/L (3.5-5.1); SODIUM SERUM 127 mmol/L (136-145); TOTAL PROTEIN, SERUM 6.9 g/dL (6.4-8.2); UREA NITROGEN, BLOOD 57 mg/dL (7-18)
[2016-09-28 07:25] LABS: BASOPHILS # (AUTO) 0.12 K/uL (0.00-0.20); BASOPHILS % (AUTO) 0.5 % (0.0-2.0); EOSINOPHILS # (AUTO) 0.32 K/uL (0.00-0.70); EOSINOPHILS % (AUTO) 1.47 % (1.0-6.0); HEMATOCRIT 39.6 % (41-53); HEMOGLOBIN 12.2 g/dL (13.5-17.5); LYMPHOCYTES # (AUTO) 2.1 K/uL (1.0-4.8); LYMPHOCYTES % (AUTO) 9.4 % (22.0-44.0); MEAN CORPUSCULAR HEMOGLOBIN 23.8 pg (26.0-34.0); MEAN CORPUSCULAR HGB CONC 30.7 G/dL (31.0-37.0); MEAN CORPUSCULAR VOLUME 78 fL (80-100); MONOCYTES # (AUTO) 0.9 K/uL (0.1-1.0); NEUTROPHILS # (AUTO) 18.6 K/uL (1.8-7.7); NEUTROPHILS % (AUTO) 84.6 % (40.0-70.0); PLATELET COUNT (AUTO) 333 K/uL (150-450); RED CELL DISTRIBUTION WIDTH 23.6 % (11.5-14.5)
[2016-09-28 07:29] LABS: CREATININE 9.86 mg/dL (0.60-1.30); GLOMERULAR FILTR. RATE CALC 5 mL/min (>60)
[2016-09-28 07:30] LABS: ALANINE AMINOTRANSFERASE < 6 U/L (12-78)
[2016-09-28 07:38] VITALS: BP 137/98
[2016-09-28] MEDS: MetroNIDAZOLE 500 MG TABLET PO SCH ×3 (08:00→23:46)
[2016-09-28] MEDS ORDERED: SODIUM CHLORIDE 0.9% 1,000 ML IV ONE (08:14)
[2016-09-28] MEDS: LOSARTAN POTASSIUM 50 MG TABLET PO SCH (09:00)
[2016-09-28] MEDS: CARVEDILOL 12.5 MG TABLET PO SCH ×2 (09:00→20:37)
[2016-09-28] MEDS: LACTOBACILLUS ACIDOPHILUS/BULGARICUS GRANULES PACKET PO SCH ×4 (09:00→20:37)
[2016-09-28 09:28] LABS: RBC MORPHOLOGY COMMENT ABNORMAL RBC MORPH
[2016-09-28] MEDS: SEVELAMER CARBONATE 800 MG TABLET PO SCH ×3 (10:02→18:50)
[2016-09-28] MEDS: CALCIUM ACETATE 667 MG CAPSULE PO SCH ×3 (10:02→18:50)
[2016-09-28 10:58] VITALS: BP 104/77
[2016-09-28] MEDS ORDERED: AMIODARONE HCL 750 MG in DEXTROSE 5%-WATER 485 ML IV SCH (13:00)
[2016-09-28] MEDS: MONTELUKAST SODIUM 10 MG TABLET PO SCH (13:06)
[2016-09-28] MEDS: ATORVASTATIN CALCIUM 40 MG TABLET PO SCH (13:06)
[2016-09-28] MEDS: CINACALCET HCL 30 MG TABLET PO SCH (13:07)
[2016-09-28] MEDS: VITAMIN B COMP/VIT C/FOLIC ACID CAPSULE PO SCH (13:07)
[2016-09-28] MEDS: PANTOPRAZOLE SODIUM 40 MG/VIAL IVP SCH (13:07)
[2016-09-28] MEDS: ASPIRIN 81 MG CHEWABLE TABLET PO SCH (13:07)
[2016-09-28 15:57] VITALS: BP 162/56
[2016-09-28 19:14] VITALS: BP 173/43
[2016-09-28] MEDS: CeFAZolin 2 GM/DEXTROSE 50 ML IV PRN (19:49)
[2016-09-28] MEDS: MIRTAZAPINE 15 MG TABLET PO SCH (20:37)
[2016-09-28] MEDS: INSULIN DETEMIR 100 UNITS/ML SQ SCH (20:41)
[2016-09-28 20:42] LABS: GLUCOSE,POINT OF CARE 97 MG/DL (70-110)
[2016-09-28 20:42] LABS: GLUCOSE COMMENT 1 Received Meds; GLUCOSE,POINT OF CARE 175 MG/DL (70-110)
[2016-09-28 20:42] LABS: GLUCOSE,POINT OF CARE 102 MG/DL (70-110)
[2016-09-28 20:42] LABS: GLUCOSE,POINT OF CARE 144 MG/DL (70-110)
[2016-09-28 20:42] LABS: GLUCOSE COMMENT 1 Received Meds; GLUCOSE,POINT OF CARE 189 MG/DL (70-110)
[2016-09-28 23:22] VITALS: BP 151/54
[2016-09-29 04:10] VITALS: BP 145/42
[2016-09-29] MEDS: INSULIN ASPART 100 UNITS/ML SQ PRN ×4 (06:08→20:18)
[2016-09-29 07:33] VITALS: BP 144/82
[2016-09-29] MEDS: LACTOBACILLUS ACIDOPHILUS/BULGARICUS GRANULES PACKET PO SCH ×4 (08:49→20:15)
[2016-09-29] MEDS: CINACALCET HCL 30 MG TABLET PO SCH (08:49)
[2016-09-29] MEDS: ATORVASTATIN CALCIUM 40 MG TABLET PO SCH (08:49)
[2016-09-29] MEDS: VITAMIN B COMP/VIT C/FOLIC ACID CAPSULE PO SCH (08:49)
[2016-09-29] MEDS: CARVEDILOL 12.5 MG TABLET PO SCH ×2 (08:50→20:15)
[2016-09-29] MEDS: CALCIUM ACETATE 667 MG CAPSULE PO SCH ×3 (08:50→18:28)
[2016-09-29] MEDS: LOSARTAN POTASSIUM 50 MG TABLET PO SCH (08:50)
[2016-09-29] MEDS: ASPIRIN 81 MG CHEWABLE TABLET PO SCH (08:50)
[2016-09-29] MEDS: SEVELAMER CARBONATE 800 MG TABLET PO SCH ×3 (08:50→18:28)
[2016-09-29] MEDS: PANTOPRAZOLE SODIUM 40 MG/VIAL IVP SCH (08:50)
[2016-09-29] MEDS: MetroNIDAZOLE 500 MG TABLET PO SCH ×2 (08:50→18:28)
[2016-09-29] MEDS: MONTELUKAST SODIUM 10 MG TABLET PO SCH (08:50)
[2016-09-29] MEDS: -HEMODIALYSIS NOTE- MISC SCH (09:00)
[2016-09-29 10:56] LABS: BASOPHILS # (AUTO) 0.04 K/uL (0.00-0.20); BASOPHILS % (AUTO) 0.2 % (0.0-2.0); EOSINOPHILS # (AUTO) 0.32 K/uL (0.00-0.70); HEMATOCRIT 41.3 % (41-53); HEMOGLOBIN 12.6 g/dL (13.5-17.5); LYMPHOCYTES # (AUTO) 2.1 K/uL (1.0-4.8); LYMPHOCYTES % (AUTO) 10.6 % (22.0-44.0); MEAN CORPUSCULAR HEMOGLOBIN 23.7 pg (26.0-34.0); MEAN CORPUSCULAR HGB CONC 30.5 G/dL (31.0-37.0); MEAN CORPUSCULAR VOLUME 78 fL (80-100); MONOCYTES # (AUTO) 0.9 K/uL (0.1-1.0); MONOCYTES % (AUTO) 4.8 % (2.0-9.0); NEUTROPHILS # (AUTO) 16.5 K/uL (1.8-7.7); NEUTROPHILS % (AUTO) 82.9 % (40.0-70.0); PLATELET COUNT (AUTO) 372 K/uL (150-450); RED BLOOD CELL COUNT(AUTO) 5.31 MIL/uL (4.50-5.90); RED CELL DISTRIBUTION WIDTH 23.4 % (11.5-14.5); WHITE BLOOD COUNT (AUTO) 19.9 K/uL (4.5-11.0)
[2016-09-29 11:48] VITALS: BP 164/56
[2016-09-29 12:17] LABS: RBC MORPHOLOGY COMMENT ABNORMAL RBC MORPH
[2016-09-29 16:34] VITALS: BP 178/83
[2016-09-29 19:19] VITALS: BP 173/77
[2016-09-29] MEDS: MIRTAZAPINE 15 MG TABLET PO SCH (20:15)
[2016-09-29] MEDS: INSULIN DETEMIR 100 UNITS/ML SQ SCH ×2 (20:17→20:22)
[2016-09-29 23:28] VITALS: BP 184/85
[2016-09-30] MEDS: CloNIDine HCL 0.1 MG TABLET PO PRN (00:02)
[2016-09-30] MEDS: MetroNIDAZOLE 500 MG TABLET PO SCH ×3 (00:02→15:54)
[2016-09-30] MEDS ORDERED: CloNIDine HCL 0.1 MG TABLET ONE (00:08)
[2016-09-30 04:40] VITALS: BP 147/60
[2016-09-30 06:57] LABS: GLUCOSE,POINT OF CARE 264 MG/DL (70-110)
[2016-09-30 06:57] LABS: GLUCOSE COMMENT 1 Received Meds; GLUCOSE,POINT OF CARE 200 MG/DL (70-110)
[2016-09-30 06:57] LABS: GLUCOSE COMMENT 1 Received Meds; GLUCOSE,POINT OF CARE 144 MG/DL (70-110)
[2016-09-30 06:57] LABS: GLUCOSE,POINT OF CARE 130 MG/DL (70-110)
[2016-09-30 07:01] LABS: GLUCOSE COMMENT 1 Received Meds; GLUCOSE,POINT OF CARE 196 MG/DL (70-110)
[2016-09-30 07:02] LABS: GLUCOSE,POINT OF CARE 139 MG/DL (70-110)
[2016-09-30 07:07] VITALS: BP 168/72
[2016-09-30 07:38] LABS: BASOPHILS % (AUTO) 0.3 % (0.0-2.0); EOSINOPHILS % (AUTO) 1.6 % (1.0-6.0); HEMATOCRIT 38.2 % (41-53); HEMOGLOBIN 11.6 g/dL (13.5-17.5); LYMPHOCYTES # (AUTO) 1.8 K/uL (1.0-4.8); LYMPHOCYTES % (AUTO) 9.7 % (22.0-44.0); MEAN CORPUSCULAR HEMOGLOBIN 24.1 pg (26.0-34.0); MEAN CORPUSCULAR HGB CONC 30.3 G/dL (31.0-37.0); MEAN CORPUSCULAR VOLUME 80 fL (80-100); MONOCYTES # (AUTO) 0.6 K/uL (0.1-1.0); MONOCYTES % (AUTO) 3.3 % (2.0-9.0); NEUTROPHILS # (AUTO) 16.1 K/uL (1.8-7.7); PLATELET COUNT (AUTO) 324 K/uL (150-450); RED CELL DISTRIBUTION WIDTH 23.5 % (11.5-14.5)
[2016-09-30 07:51] LABS: CALCIUM, TOTAL 8.2 mg/dL (8.8-10.5); CREATININE 9.32 mg/dL (0.60-1.30); MAGNESIUM 1.9 mg/dL (1.80-2.40); PHOSPHORUS 2.1 mg/dL (2.5-4.9); POTASSIUM 5.9 mmol/L (3.5-5.1)
[2016-09-30] MEDS: SEVELAMER CARBONATE 800 MG TABLET PO SCH (08:00)
[2016-09-30] MEDS: LOSARTAN POTASSIUM 50 MG TABLET PO SCH (08:43)
[2016-09-30] MEDS: VITAMIN B COMP/VIT C/FOLIC ACID CAPSULE PO SCH (08:43)
[2016-09-30] MEDS: PANTOPRAZOLE SODIUM 40 MG/VIAL IVP SCH (08:43)
[2016-09-30] MEDS: CARVEDILOL 12.5 MG TABLET PO SCH ×2 (08:43→20:06)
[2016-09-30] MEDS: CINACALCET HCL 30 MG TABLET PO SCH (08:43)
[2016-09-30] MEDS: ASPIRIN 81 MG CHEWABLE TABLET PO SCH (08:43)
[2016-09-30] MEDS: ATORVASTATIN CALCIUM 40 MG TABLET PO SCH (08:43)
[2016-09-30] MEDS: MONTELUKAST SODIUM 10 MG TABLET PO SCH (08:43)
[2016-09-30] MEDS: LACTOBACILLUS ACIDOPHILUS/BULGARICUS GRANULES PACKET PO SCH ×4 (08:44→20:06)
[2016-09-30] MEDS: -HEMODIALYSIS NOTE- MISC SCH (08:52)
[2016-09-30 09:08] LABS: NEUTROPHILS % (AUTO) 85.1 % (40.0-70.0)
[2016-09-30] MEDS ORDERED: SODIUM POLYSTYRENE SULFONATE 15 GM/60 ML SUSPENSION BOTTLE PO ONE (09:45)
[2016-09-30 11:40] VITALS: BP 169/66
[2016-09-30] MEDS: INSULIN ASPART 100 UNITS/ML SQ PRN ×2 (12:01→18:17)
[2016-09-30 12:12] VITALS: BP 150/78
[2016-09-30 15:14] VITALS: BP 159/58
[2016-09-30 17:36] LABS: GLUCOSE,POINT OF CARE 156 MG/DL (70-110)
[2016-09-30 19:47] VITALS: BP 200/88
[2016-09-30] MEDS: MIRTAZAPINE 15 MG TABLET PO SCH (20:06)
[2016-09-30] MEDS: INSULIN DETEMIR 100 UNITS/ML SQ SCH (21:00)
[2016-10-01] VITALS (8 sets, daily range): BP systolic 123–187; BP diastolic 56–83
[2016-10-01] MEDS: MetroNIDAZOLE 500 MG TABLET PO SCH ×3 (00:11→18:37)
[2016-10-01] MEDS: CloNIDine HCL 0.1 MG TABLET PO PRN (03:13)
[2016-10-01] MEDS: INSULIN ASPART 100 UNITS/ML SQ PRN ×4 (06:18→20:53)
[2016-10-01 06:28] LABS: BASOPHILS # (AUTO) 0.11 K/uL (0.00-0.20); BASOPHILS % (AUTO) 0.6 % (0.0-2.0); EOSINOPHILS # (AUTO) 0.21 K/uL (0.00-0.70); EOSINOPHILS % (AUTO) 1.01 % (1.0-6.0); HEMATOCRIT 37.6 % (41-53); HEMOGLOBIN 11.7 g/dL (13.5-17.5); LYMPHOCYTES % (AUTO) 9.5 % (22.0-44.0); MEAN CORPUSCULAR HEMOGLOBIN 24.1 pg (26.0-34.0); MEAN CORPUSCULAR HGB CONC 30.9 G/dL (31.0-37.0); MEAN CORPUSCULAR VOLUME 78 fL (80-100); MONOCYTES # (AUTO) 0.4 K/uL (0.1-1.0); MONOCYTES % (AUTO) 1.8 % (2.0-9.0); PLATELET COUNT (AUTO) 373 K/uL (150-450); RED BLOOD CELL COUNT(AUTO) 4.83 MIL/uL (4.50-5.90); RED CELL DISTRIBUTION WIDTH 23.5 % (11.5-14.5); WHITE BLOOD COUNT (AUTO) 20.6 K/uL (4.5-11.0)
[2016-10-01 06:48] LABS: CALCIUM, TOTAL 8.2 mg/dL (8.8-10.5); CREATININE 10.95 mg/dL (0.60-1.30); MAGNESIUM 1.9 mg/dL (1.80-2.40); PHOSPHORUS 2.9 mg/dL (2.5-4.9); POTASSIUM 5.4 mmol/L (3.5-5.1)
[2016-10-01 06:49] LABS: NEUTROPHILS % (AUTO) 87.2 % (40.0-70.0)
[2016-10-01] MEDS ORDERED: SODIUM CHLORIDE 0.9% 2,000 ML IV ONE (07:59)
[2016-10-01] MEDS: PANTOPRAZOLE SODIUM 40 MG/VIAL IVP SCH (08:01)
[2016-10-01] MEDS: LACTOBACILLUS ACIDOPHILUS/BULGARICUS GRANULES PACKET PO SCH ×4 (08:01→20:50)
[2016-10-01] MEDS: VITAMIN B COMP/VIT C/FOLIC ACID CAPSULE PO SCH (08:02)
[2016-10-01] MEDS: MONTELUKAST SODIUM 10 MG TABLET PO SCH (08:02)
[2016-10-01] MEDS: ATORVASTATIN CALCIUM 40 MG TABLET PO SCH (08:02)
[2016-10-01] MEDS ORDERED: ALBUMIN HUMAN 25%-12.5GM/50ML IV BOTTLE IV PRN (09:00)
[2016-10-01] MEDS: -HEMODIALYSIS NOTE- MISC SCH (09:00)
[2016-10-01] MEDS ORDERED: MANNITOL 25%-12.5 GM/50 ML VIAL IVP PRN (09:00)
[2016-10-01 11:25] LABS: RBC MORPHOLOGY COMMENT ABNORMAL RBC MORPH
[2016-10-01] MEDS: CeFAZolin 2 GM/DEXTROSE 50 ML IV PRN (11:52)
[2016-10-01] MEDS: LOSARTAN POTASSIUM 50 MG TABLET PO SCH (11:54)
[2016-10-01] MEDS: CARVEDILOL 12.5 MG TABLET PO SCH ×2 (11:55→20:50)
[2016-10-01] MEDS: CINACALCET HCL 30 MG TABLET PO SCH (11:55)
[2016-10-01] MEDS: ASPIRIN 81 MG CHEWABLE TABLET PO SCH (11:55)
[2016-10-01 12:01] LABS: GLUCOSE COMMENT 1 Received Meds; GLUCOSE,POINT OF CARE 145 MG/DL (70-110)
[2016-10-01] MEDS ORDERED: ALBUMIN HUMAN 25%-12.5GM/50ML IV BOTTLE IV ONE (16:58)
[2016-10-01] MEDS ORDERED: MANNITOL 25%-12.5 GM/50 ML VIAL IVP ONE (16:58)
[2016-10-01 20:01] LABS: GLUCOSE COMMENT 1 Received Meds; GLUCOSE,POINT OF CARE 168 MG/DL (70-110)
[2016-10-01 20:01] LABS: GLUCOSE,POINT OF CARE 208 MG/DL (70-110)
[2016-10-01 20:06] LABS: GLUCOSE,POINT OF CARE 273 MG/DL (70-110)
[2016-10-01 20:06] LABS: GLUCOSE,POINT OF CARE 182 MG/DL (70-110)
[2016-10-01 20:07] LABS: GLUCOSE,POINT OF CARE 277 MG/DL (70-110)
[2016-10-01] MEDS: MIRTAZAPINE 15 MG TABLET PO SCH (20:50)
[2016-10-01] MEDS: VANCOMYCIN HCL 125 MG/2.5 ML SOLUTION ORAL.SYG PO SCH (20:50)
[2016-10-01] MEDS: INSULIN DETEMIR 100 UNITS/ML SQ SCH (20:52)
[2016-10-02] MEDS: VANCOMYCIN HCL 125 MG/2.5 ML SOLUTION ORAL.SYG PO SCH ×5 (00:09→23:37)
[2016-10-02 04:55] VITALS: BP 144/56
[2016-10-02 05:51] LABS: GLUCOSE COMMENT 1 Received Meds; GLUCOSE,POINT OF CARE 112 MG/DL (70-110)
[2016-10-02] MEDS: VITAMIN B COMP/VIT C/FOLIC ACID CAPSULE PO SCH (08:36)
[2016-10-02] MEDS: CINACALCET HCL 30 MG TABLET PO SCH (08:36)
[2016-10-02] MEDS: LOSARTAN POTASSIUM 50 MG TABLET PO SCH (08:36)
[2016-10-02] MEDS: CARVEDILOL 12.5 MG TABLET PO SCH ×2 (08:36→20:01)
[2016-10-02] MEDS: ATORVASTATIN CALCIUM 40 MG TABLET PO SCH (08:36)
[2016-10-02] MEDS: ASPIRIN 81 MG CHEWABLE TABLET PO SCH (08:36)
[2016-10-02] MEDS: MONTELUKAST SODIUM 10 MG TABLET PO SCH (08:36)
[2016-10-02] MEDS: LACTOBACILLUS ACIDOPHILUS/BULGARICUS GRANULES PACKET PO SCH ×4 (08:36→20:01)
[2016-10-02] MEDS: PANTOPRAZOLE SODIUM 40 MG/VIAL IVP SCH (08:37)
[2016-10-02] MEDS: -HEMODIALYSIS NOTE- MISC SCH (08:37)
[2016-10-02 08:41] LABS: BASOPHILS % (AUTO) 0.2 % (0.0-2.0); EOSINOPHILS % (AUTO) 0.9 % (1.0-6.0); HEMOGLOBIN 12.1 g/dL (13.5-17.5); LYMPHOCYTES # (AUTO) 1.9 K/uL (1.0-4.8); LYMPHOCYTES % (AUTO) 9.6 % (22.0-44.0); MEAN CORPUSCULAR HEMOGLOBIN 23.8 pg (26.0-34.0); MEAN CORPUSCULAR HGB CONC 30.3 G/dL (31.0-37.0); MEAN CORPUSCULAR VOLUME 78 fL (80-100); MONOCYTES # (AUTO) 0.7 K/uL (0.1-1.0); MONOCYTES % (AUTO) 3.5 % (2.0-9.0); PLATELET COUNT (AUTO) 369 K/uL (150-450); RED BLOOD CELL COUNT(AUTO) 5.11 MIL/uL (4.50-5.90); RED CELL DISTRIBUTION WIDTH 24.1 % (11.5-14.5); WHITE BLOOD COUNT (AUTO) 19.9 K/uL (4.5-11.0)
[2016-10-02 08:42] LABS: NEUTROPHILS % (AUTO) 85.8 % (40.0-70.0)
[2016-10-02 08:43] LABS: RBC MORPHOLOGY COMMENT ABNORMAL RBC MORPH
[2016-10-02 08:51] VITALS: BP 164/103
[2016-10-02 09:41] LABS: GLUCOSE COMMENT 1 Received Meds; GLUCOSE,POINT OF CARE 147 MG/DL (70-110)
[2016-10-02 09:41] LABS: GLUCOSE COMMENT 1 Received Meds; GLUCOSE,POINT OF CARE 250 MG/DL (70-110)
[2016-10-02 09:41] LABS: GLUCOSE COMMENT 1 Received Meds; GLUCOSE,POINT OF CARE 237 MG/DL (70-110)
[2016-10-02] MEDS: INSULIN ASPART 100 UNITS/ML SQ PRN ×3 (11:59→20:14)
[2016-10-02 12:08] VITALS: BP 165/67
[2016-10-02 15:30] VITALS: BP 157/88
[2016-10-02] MEDS: MIRTAZAPINE 15 MG TABLET PO SCH (20:01)
[2016-10-02] MEDS: INSULIN DETEMIR 100 UNITS/ML SQ SCH (20:11)
[2016-10-02 20:17] VITALS: BP 180/69
[2016-10-02 22:41] LABS: GLUCOSE,POINT OF CARE 261 MG/DL (70-110)
[2016-10-02 22:41] LABS: GLUCOSE COMMENT 1 Received Meds; GLUCOSE,POINT OF CARE 201 MG/DL (70-110)
[2016-10-02 22:41] LABS: GLUCOSE COMMENT 1 Received Meds; GLUCOSE,POINT OF CARE 158 MG/DL (70-110)
[2016-10-03] VITALS (7 sets, daily range): BP systolic 103–177; BP diastolic 40–84
[2016-10-03] MEDS: VANCOMYCIN HCL 125 MG/2.5 ML SOLUTION ORAL.SYG PO SCH ×3 (05:32→17:28)
[2016-10-03 05:41] LABS: GLUCOSE,POINT OF CARE 112 MG/DL (70-110)
[2016-10-03 06:31] LABS: CALCIUM, TOTAL 8.1 mg/dL (8.8-10.5); CREATININE 10.48 mg/dL (0.60-1.30); MAGNESIUM 1.8 mg/dL (1.80-2.40); PHOSPHORUS 4.6 mg/dL (2.5-4.9); POTASSIUM 5.1 mmol/L (3.5-5.1)
[2016-10-03] MEDS: MONTELUKAST SODIUM 10 MG TABLET PO SCH (08:41)
[2016-10-03] MEDS: ASPIRIN 81 MG CHEWABLE TABLET PO SCH (08:41)
[2016-10-03] MEDS: ATORVASTATIN CALCIUM 40 MG TABLET PO SCH (08:41)
[2016-10-03] MEDS: CINACALCET HCL 30 MG TABLET PO SCH (08:42)
[2016-10-03] MEDS: LACTOBACILLUS ACIDOPHILUS/BULGARICUS GRANULES PACKET PO SCH ×4 (08:42→21:13)
[2016-10-03] MEDS: PANTOPRAZOLE SODIUM 40 MG/VIAL IVP SCH (08:44)
[2016-10-03] MEDS: -HEMODIALYSIS NOTE- MISC SCH (09:00)
[2016-10-03] MEDS: CARVEDILOL 12.5 MG TABLET PO SCH ×2 (12:18→21:13)
[2016-10-03 12:50] LABS: GLUCOSE,POINT OF CARE 135 MG/DL (70-110)
[2016-10-03] MEDS ORDERED: MANNITOL 25%-12.5 GM/50 ML VIAL IVP PRN (13:15)
[2016-10-03] MEDS ORDERED: ALBUMIN HUMAN 25%-12.5GM/50ML IV BOTTLE IV PRN (13:15)
[2016-10-03] MEDS: VITAMIN B COMP/VIT C/FOLIC ACID CAPSULE PO SCH (16:39)
[2016-10-03] MEDS: CeFAZolin 2 GM/DEXTROSE 50 ML IV PRN (16:39)
[2016-10-03] MEDS: LOSARTAN POTASSIUM 50 MG TABLET PO SCH (16:39)
[2016-10-03] MEDS ORDERED: SODIUM CHLORIDE 0.9% 250 ML IV ONE (16:50)
[2016-10-03] MEDS: INSULIN ASPART 100 UNITS/ML SQ PRN ×2 (17:28→21:21)
[2016-10-03 18:51] LABS: GLUCOSE COMMENT 1 Received Meds; GLUCOSE,POINT OF CARE 150 MG/DL (70-110)
[2016-10-03] MEDS: MIRTAZAPINE 15 MG TABLET PO SCH (21:12)
[2016-10-03] MEDS: INSULIN DETEMIR 100 UNITS/ML SQ SCH (21:20)
[2016-10-04] MEDS: VANCOMYCIN HCL 125 MG/2.5 ML SOLUTION ORAL.SYG PO SCH ×4 (00:39→16:36)
[2016-10-04 05:10] VITALS: BP 136/51
[2016-10-04] MEDS: INSULIN ASPART 100 UNITS/ML SQ PRN ×3 (06:35→18:07)
[2016-10-04 07:07] LABS: BASOPHILS # (AUTO) 0.04 K/uL (0.00-0.20); BASOPHILS % (AUTO) 0.3 % (0.0-2.0); EOSINOPHILS % (AUTO) 0.71 % (1.0-6.0); HEMATOCRIT 39.7 % (41-53); HEMOGLOBIN 12.1 g/dL (13.5-17.5); LYMPHOCYTES # (AUTO) 1.4 K/uL (1.0-4.8); LYMPHOCYTES % (AUTO) 9.4 % (22.0-44.0); MEAN CORPUSCULAR HEMOGLOBIN 23.7 pg (26.0-34.0); MEAN CORPUSCULAR HGB CONC 30.5 G/dL (31.0-37.0); MEAN CORPUSCULAR VOLUME 78 fL (80-100); MONOCYTES # (AUTO) 0.8 K/uL (0.1-1.0); MONOCYTES % (AUTO) 5.6 % (2.0-9.0); NEUTROPHILS # (AUTO) 12.1 K/uL (1.8-7.7); NEUTROPHILS % (AUTO) 84.1 % (40.0-70.0); PLATELET COUNT (AUTO) 348 K/uL (150-450); WHITE BLOOD COUNT (AUTO) 14.4 K/uL (4.5-11.0)
[2016-10-04 07:12] LABS: GLUCOSE COMMENT 1 Received Meds; GLUCOSE,POINT OF CARE 153 MG/DL (70-110)
[2016-10-04 07:40] VITALS: BP 132/65
[2016-10-04] MEDS: LACTOBACILLUS ACIDOPHILUS/BULGARICUS GRANULES PACKET PO SCH ×3 (08:36→16:36)
[2016-10-04] MEDS: ATORVASTATIN CALCIUM 40 MG TABLET PO SCH (08:36)
[2016-10-04] MEDS: CINACALCET HCL 30 MG TABLET PO SCH (08:36)
[2016-10-04] MEDS: ASPIRIN 81 MG CHEWABLE TABLET PO SCH (08:37)
[2016-10-04] MEDS: MONTELUKAST SODIUM 10 MG TABLET PO SCH (08:37)
[2016-10-04] MEDS: CARVEDILOL 12.5 MG TABLET PO SCH (08:37)
[2016-10-04] MEDS: VITAMIN B COMP/VIT C/FOLIC ACID CAPSULE PO SCH (08:37)
[2016-10-04] MEDS: LOSARTAN POTASSIUM 50 MG TABLET PO SCH (08:37)
[2016-10-04] MEDS: PANTOPRAZOLE SODIUM 40 MG/VIAL IVP SCH (08:40)
[2016-10-04] MEDS: -HEMODIALYSIS NOTE- MISC SCH (09:00)
[2016-10-04 09:33] LABS: RBC MORPHOLOGY COMMENT ABNORMAL RBC MORPH
[2016-10-04 11:00] VITALS: BP 157/68
[2016-10-04 16:14] VITALS: BP 148/84
[2016-10-04] MEDS ORDERED: INSLAN SQ ×2 (17:24→17:27)
[2016-10-04 18:27] LABS: GLUCOSE COMMENT 1 Received Meds; GLUCOSE,POINT OF CARE 209 MG/DL (70-110)
[2016-10-07 11:57] LABS: GLUCOSE,POINT OF CARE 144 MG/DL (70-110)
[2016-10-07 11:57] LABS: GLUCOSE COMMENT 1 Received Meds; GLUCOSE,POINT OF CARE 227 MG/DL (70-110)
== END 2016-10-04 18:50 | disposition home or self-care (01) | DRG 871 ==
LOC: EMS 15:46 → 5N 17:07 → 5S 09-30 21:30
PROVIDERS: ADMIT Internal Medicine; ATTEND Internal Medicine
PROC: 5A1D60Z (ICD-10-PCS; principal; 2016-09-18)
PROC: 0W9B3ZZ Drainage of Left Pleural Cavity, Percutaneous Approach (ICD-10-PCS; 2016-09-20)
DX: A41.9 Sepsis, unspecified organism (principal); J18.9 Pneumonia, unspecified organism; I50.23 Acute on chronic systolic (congestive) heart failure; N18.6 End stage renal disease; E43 Unspecified severe protein-calorie malnutrition; J90 Pleural effusion, not elsewhere classified; E46 Unspecified protein-calorie malnutrition; J98.11 Atelectasis; E87.1 Hypo-osmolality and hyponatremia; I13.2 Hypertensive heart and chronic kidney disease with heart failure and with stage 5 chronic kidney disease, or end stage renal disease; A04.7 Enterocolitis due to Clostridium difficile; M10.9 Gout, unspecified; B96.89 Other specified bacterial agents as the cause of diseases classified elsewhere; B95.61 Methicillin susceptible Staphylococcus aureus infection as the cause of diseases classified elsewhere; D50.9 Iron deficiency anemia, unspecified; E87.5 Hyperkalemia; E11.21 Type 2 diabetes mellitus with diabetic nephropathy; E11.22 Type 2 diabetes mellitus with diabetic chronic kidney disease; E78.00 Pure hypercholesterolemia, unspecified; E78.5 Hyperlipidemia, unspecified; I25.10 Atherosclerotic heart disease of native coronary artery without angina pectoris; J45.909 Unspecified asthma, uncomplicated; Z95.1 Presence of aortocoronary bypass graft; Z87.01 Personal history of pneumonia (recurrent); Z68.21 Body mass index [BMI] 21.0-21.9, adult; Z86.73 Personal history of transient ischemic attack (TIA), and cerebral infarction without residual deficits; Z99.2 Dependence on renal dialysis; Z79.4 Long term (current) use of insulin; Z88.1 Allergy status to other antibiotic agents; Z79.82 Long term (current) use of aspirin; Z79.899 Other long term (current) drug therapy; Z83.3 Family history of diabetes mellitus; Z82.49 Family history of ischemic heart disease and other diseases of the circulatory system
CPT/HCPCS: 32555; 71260; 74000; 76942; 82465; 82805; 82945; 82962; 83605; 83615; 83735; 83970; 83986; 84100; 84132; 84146; 84155; 84157; 84443; 85651; 86140; 87015; 87040; 87070; 87081; 87101; 87205; 87324; 87340; 87449; 88108; 89051; 90935; 93005; 93306; 96365; 96367; 96375; 99291; C9113; J0131; J0282; J0690; J1956; J2150; J2405; J2543; J3370; J7030; J7050; J7060; P9047

== ENCOUNTER 2016-10-31 01:12 | Emergency (ER) | payer OTHER ==
[~2016-10-31] VITALS: Ht 165.1 cm; Wt 59.0 kg
[~2016-10-31 01:12] MED LIST changes: -AMLO-512 PO; +ATOR40TA28 PO; +CINA60TA PO; -CLOP75 PO; -LABE100 PO; +LOSA50TA37 PO; +MIRT30 PO; +MONT10TA21 PO; -SIMV40TA5 PO; -SUCR500T PO; -[UNRECOGNIZED DRUG - OTHER] SQ
[2016-10-31 01:27] LABS: GLUCOSE COMMENT 1 Doctor Notified; GLUCOSE,POINT OF CARE 112 MG/DL (70-110)
[2016-10-31 02:08] LABS: ANION GAP 7 mmol/L (8-16); CALCIUM, TOTAL 10.5 mg/dL (8.8-10.5); CARBON DIOXIDE 31 mmol/L (22-29); CHLORIDE 99 mmol/L (98-107); CREATININE 7.42 mg/dL (0.60-1.30); GLOMERULAR FILTR. RATE CALC 7 mL/min (>60); POTASSIUM 5.6 mmol/L (3.5-5.1); SODIUM SERUM 137 mmol/L (136-145); UREA NITROGEN, BLOOD 49 mg/dL (7-18)
[2016-10-31 02:13] LABS: ALANINE AMINOTRANSFERASE 19 U/L (12-78); ASPARTATE AMINOTRANSFERASE 20 U/L (15-37); BASOPHILS # (AUTO) 0.04 K/uL (0.00-0.20); BASOPHILS % (AUTO) 0.4 % (0.0-2.0); BILIRUBIN,TOTAL 0.4 mg/dL (0.1-1.0); CREATINE KINASE, TOTAL 56 U/L (39-308); EOSINOPHILS # (AUTO) 0.35 K/uL (0.00-0.70); EOSINOPHILS % (AUTO) 3.64 % (1.0-6.0); HEMATOCRIT 38.6 % (41-53); HEMOGLOBIN 11.9 g/dL (13.5-17.5); LYMPHOCYTES # (AUTO) 2.2 K/uL (1.0-4.8); LYMPHOCYTES % (AUTO) 22.7 % (22.0-44.0); MEAN CORPUSCULAR HEMOGLOBIN 24.1 pg (26.0-34.0); MEAN CORPUSCULAR HGB CONC 30.9 G/dL (31.0-37.0); MEAN CORPUSCULAR VOLUME 78 fL (80-100); MONOCYTES # (AUTO) 0.9 K/uL (0.1-1.0); MONOCYTES % (AUTO) 9.1 % (2.0-9.0); NEUTROPHILS # (AUTO) 6.1 K/uL (1.8-7.7); NEUTROPHILS % (AUTO) 64.2 % (40.0-70.0); PLATELET COUNT (AUTO) 210 K/uL (150-450); RED BLOOD CELL COUNT(AUTO) 4.94 MIL/uL (4.50-5.90); RED CELL DISTRIBUTION WIDTH 22.5 % (11.5-14.5); TOTAL PROTEIN, SERUM 7.9 g/dL (6.4-8.2); WHITE BLOOD COUNT (AUTO) 9.5 K/uL (4.5-11.0)
[2016-10-31 02:32] LABS: PROTHROMBIN TIME 10.9 SEC (9.4-11.6)
[2016-10-31 02:40] LABS: B-TYPE NATRIURETIC PEPTIDE 1780 pg/mL (0-100)
[2016-10-31] MEDS ORDERED: SODIUM POLYSTYRENE SULFONATE 15 GM/60 ML SUSPENSION BOTTLE PO ONE (03:15)
[2016-10-31 03:35] VITALS: BP 189/76
[2016-10-31 04:56] LABS: RBC MORPHOLOGY COMMENT ABNORMAL RBC MORPH
== END 2016-10-31 03:44 | disposition home or self-care (01) ==
LOC: EMS 01:14
DX: I12.0 Hypertensive chronic kidney disease with stage 5 chronic kidney disease or end stage renal disease (principal); N18.6 End stage renal disease; E11.22 Type 2 diabetes mellitus with diabetic chronic kidney disease; E87.5 Hyperkalemia; J45.909 Unspecified asthma, uncomplicated; Z99.2 Dependence on renal dialysis; Z79.4 Long term (current) use of insulin; Z88.1 Allergy status to other antibiotic agents
CPT/HCPCS: 82962; 93005; 99285

== ENCOUNTER 2017-07-16 07:22 | Inpatient (IN) | payer OTHER ==
[~2017-07-16] VITALS: Ht 170.2 cm; Wt 61.2 kg
[2017-07-16 09:08] LABS: GLUCOSE,POINT OF CARE 177 MG/DL (70-110)
[2017-07-16 09:39] LABS: BASOPHILS % (AUTO) 0.1 % (0.0-2.0); EOSINOPHILS % (AUTO) 0.7 % (1.0-6.0); HEMATOCRIT 33.4 % (41-53); HEMOGLOBIN 10.7 g/dL (13.5-17.5); LYMPHOCYTES % (AUTO) 8.9 % (22.0-44.0); MEAN CORPUSCULAR HEMOGLOBIN 24.4 pg (26.0-34.0); MEAN CORPUSCULAR VOLUME 76 fL (80-100); MONOCYTES # (AUTO) 1.1 K/uL (0.1-1.0); MONOCYTES % (AUTO) 10.1 % (2.0-9.0); NEUTROPHILS # (AUTO) 8.7 K/uL (1.8-7.7); NEUTROPHILS % (AUTO) 80.2 % (40.0-70.0); PLATELET COUNT (AUTO) 267 K/uL (150-450); RED BLOOD CELL COUNT(AUTO) 4.38 MIL/uL (4.50-5.90); RED CELL DISTRIBUTION WIDTH 18.8 % (11.5-14.5); WHITE BLOOD COUNT (AUTO) 10.8 K/uL (4.5-11.0)
[2017-07-16 09:50] LABS: ANION GAP 11 mmol/L (8-16); CALCIUM, TOTAL 10.4 mg/dL (8.8-10.5); CARBON DIOXIDE 31 mmol/L (22-29); CHLORIDE 94 mmol/L (98-107); CREATININE 5.66 mg/dL (0.60-1.30); GLOMERULAR FILTR. RATE CALC 10 mL/min (>60); SODIUM SERUM 136 mmol/L (136-145); UREA NITROGEN, BLOOD 26 mg/dL (7-18)
[2017-07-16 09:53] LABS: INR 1.1 (0.9-1.1); PROTHROMBIN TIME 11.4 SEC (9.4-11.6)
[2017-07-16 10:05] LABS: RBC MORPHOLOGY COMMENT ABNORMAL RBC MORPH
[2017-07-16 10:06] LABS: B-TYPE NATRIURETIC PEPTIDE 1300 pg/mL (0-100)
[2017-07-16 10:15] LABS: ALANINE AMINOTRANSFERASE 43 U/L (12-78); ALBUMIN 2.7 g/dL (3.4-5.0); ASPARTATE AMINOTRANSFERASE 25 U/L (15-37); BILIRUBIN,TOTAL 0.6 mg/dL (0.1-1.0); CREATINE KINASE MB 1.7 ng/mL (0-5); CREATINE KINASE, TOTAL 111 U/L (39-308); TOTAL PROTEIN, SERUM 8.1 g/dL (6.4-8.2)
[2017-07-16 13:50] VITALS: BP 169/68
[2017-07-16 15:21] LABS: PROCALCITONIN (PCT) 0.61 ng/mL (<0.50)
[2017-07-16 16:22] LABS: INFLUENZA TYPE B NEGATIVE FOR TYPE B (NEGATIVE)
[2017-07-16 16:25] VITALS: BP 144/63
[2017-07-16] MEDS ORDERED: DEXTROSE 50%-WATER 25 GM/50 ML SYRINGE IVP PRN (18:15)
[2017-07-16] MEDS: INSULIN ASPART 100 UNITS/ML SQ PRN ×2 (18:20→20:37)
[2017-07-16] MEDS: CINACALCET HCL 30 MG TABLET PO SCH (18:21)
[2017-07-16] MEDS: SEVELAMER CARBONATE 800 MG TABLET PO SCH (18:21)
[2017-07-16 19:20] LABS: APPEARANCE,UNSPUN,BODY FLUID CLOUDY (CLEAR); COLOR,BODY FLUID YELLOW (LT YELLOW)
[2017-07-16 19:44] VITALS: BP 156/70
[2017-07-16] MEDS: CARVEDILOL 12.5 MG TABLET PO SCH (20:33)
[2017-07-16] MEDS: INSULIN DETEMIR 100 UNITS/ML SQ SCH (21:23)
[2017-07-16] MEDS ORDERED: OxyCODONE HCL/ACETAMINOPHEN 5-325 MG TABLET PO PRN (23:00)
[2017-07-16] MEDS ORDERED: 0.9% SODIUM CHLORIDE 10 ML SYRINGE IVP PRN (23:00)
[2017-07-16] MEDS ORDERED: MAGNESIUM HYDROXIDE SUSPENSION 30 ML UDCUP PO PRN (23:00)
[2017-07-16] MEDS ORDERED: ONDANSETRON HCL 4 MG/2 ML VIAL IVP PRN (23:00)
[2017-07-16] MEDS ORDERED: ACETAMINOPHEN 325 MG TABLET PO PRN (23:00)
[2017-07-16] MEDS: DOCUSATE SODIUM 100 MG CAPSULE PO SCH (23:09)
[2017-07-16] MEDS: OxyCODONE HCL/ACETAMINOPHEN 5-325 MG TABLET PO PRN (23:09)
[2017-07-16 23:57] VITALS: BP 156/75
[2017-07-17 04:37] VITALS: BP 149/65
[2017-07-17] MEDS: INSULIN ASPART 100 UNITS/ML SQ PRN ×2 (06:32→20:54)
[2017-07-17 07:36] LABS: EOSINOPHILS # (AUTO) 0.03 K/uL (0.00-0.70); EOSINOPHILS % (AUTO) 0.27 % (1.0-6.0); HEMOGLOBIN 12.9 g/dL (13.5-17.5); LYMPHOCYTES # (AUTO) 0.8 K/uL (1.0-4.8); LYMPHOCYTES % (AUTO) 6.5 % (22.0-44.0); MEAN CORPUSCULAR HEMOGLOBIN 23.9 pg (26.0-34.0); MEAN CORPUSCULAR HGB CONC 30.7 G/dL (31.0-37.0); MEAN CORPUSCULAR VOLUME 78 fL (80-100); MONOCYTES # (AUTO) 0.7 K/uL (0.1-1.0); MONOCYTES % (AUTO) 5.3 % (2.0-9.0); NEUTROPHILS # (AUTO) 10.9 K/uL (1.8-7.7); PLATELET COUNT (AUTO) 287 K/uL (150-450); RED BLOOD CELL COUNT(AUTO) 5.38 MIL/uL (4.50-5.90); RED CELL DISTRIBUTION WIDTH 19.4 % (11.5-14.5); WHITE BLOOD COUNT (AUTO) 12.4 K/uL (4.5-11.0)
[2017-07-17 07:41] LABS: HEMATOCRIT 37.8 % (41-53)
[2017-07-17 08:00] LABS: CALCIUM, TOTAL 10.7 mg/dL (8.8-10.5); CREATININE 7.73 mg/dL (0.60-1.30); MAGNESIUM 2.8 mg/dL (1.80-2.40)
[2017-07-17] MEDS: SEVELAMER CARBONATE 800 MG TABLET PO SCH ×3 (08:00→18:30)
[2017-07-17] MEDS: CINACALCET HCL 30 MG TABLET PO SCH ×2 (08:00→18:30)
[2017-07-17 08:15] LABS: RBC MORPHOLOGY COMMENT ABNORMAL RBC MORPH
[2017-07-17 08:29] VITALS: BP 182/96
[2017-07-17 11:34] VITALS: BP 136/77
[2017-07-17 13:12] LABS: TOTAL PROTEIN,BODY FLUID,REF 5.6 g/dL
[2017-07-17] MEDS: CARVEDILOL 12.5 MG TABLET PO SCH ×2 (13:18→20:39)
[2017-07-17] MEDS: DOCUSATE SODIUM 100 MG CAPSULE PO SCH ×2 (13:18→20:39)
[2017-07-17] MEDS: ASPIRIN 81 MG CHEWABLE TABLET PO SCH (13:18)
[2017-07-17] MEDS: LOSARTAN POTASSIUM 50 MG TABLET PO SCH (13:18)
[2017-07-17] MEDS: ALLOPURINOL 100 MG TABLET PO SCH (13:19)
[2017-07-17] MEDS: MIRTAZAPINE 30 MG TABLET PO SCH (13:19)
[2017-07-17] MEDS: MONTELUKAST SODIUM 10 MG TABLET PO SCH (13:23)
[2017-07-17] MEDS: PANTOPRAZOLE SODIUM 40 MG/VIAL IVP SCH (13:23)
[2017-07-17] MEDS: ATORVASTATIN CALCIUM 40 MG TABLET PO SCH (13:24)
[2017-07-17] MEDS: VITAMIN B COMP/VIT C/FOLIC ACID CAPSULE PO SCH (13:24)
[2017-07-17] MEDS: EPOETIN ALFA 10,000 UNITS/ML VIAL SQ SCH (13:31)
[2017-07-17 15:08] VITALS: BP 115/52
[2017-07-17 20:13] VITALS: BP 132/49
[2017-07-17] MEDS: INSULIN DETEMIR 100 UNITS/ML SQ SCH (20:52)
[2017-07-18 00:09] VITALS: BP 142/51
[2017-07-18 04:10] VITALS: BP 145/65
[2017-07-18] MEDS: INSULIN ASPART 100 UNITS/ML SQ PRN ×4 (06:08→20:29)
[2017-07-18 07:21] LABS: BASOPHILS # (AUTO) 0.01 K/uL (0.00-0.20); BASOPHILS % (AUTO) 0.1 % (0.0-2.0); EOSINOPHILS # (AUTO) 0.18 K/uL (0.00-0.70); EOSINOPHILS % (AUTO) 1.01 % (1.0-6.0); HEMATOCRIT 37.1 % (41-53); HEMOGLOBIN 11.5 g/dL (13.5-17.5); LYMPHOCYTES # (AUTO) 0.9 K/uL (1.0-4.8); LYMPHOCYTES % (AUTO) 5.2 % (22.0-44.0); MEAN CORPUSCULAR HEMOGLOBIN 24.2 pg (26.0-34.0); MEAN CORPUSCULAR HGB CONC 31.1 G/dL (31.0-37.0); MEAN CORPUSCULAR VOLUME 78 fL (80-100); MONOCYTES # (AUTO) 0.8 K/uL (0.1-1.0); MONOCYTES % (AUTO) 4.5 % (2.0-9.0); PLATELET COUNT (AUTO) 290 K/uL (150-450); RED BLOOD CELL COUNT(AUTO) 4.77 MIL/uL (4.50-5.90); RED CELL DISTRIBUTION WIDTH 19.6 % (11.5-14.5)
[2017-07-18 07:25] VITALS: BP 148/67
[2017-07-18 07:25] LABS: NEUTROPHILS % (AUTO) 89.3 % (40.0-70.0)
[2017-07-18 07:46] LABS: CALCIUM, TOTAL 9.3 mg/dL (8.8-10.5); CREATININE 6.19 mg/dL (0.60-1.30); MAGNESIUM 2.4 mg/dL (1.80-2.40); PHOSPHORUS 4.5 mg/dL (2.5-4.9); POTASSIUM 4.3 mmol/L (3.5-5.1)
[2017-07-18 08:23] LABS: RBC MORPHOLOGY COMMENT ABNORMAL RBC MORPH
[2017-07-18] MEDS: SEVELAMER CARBONATE 800 MG TABLET PO SCH ×3 (08:57→17:59)
[2017-07-18] MEDS: ATORVASTATIN CALCIUM 40 MG TABLET PO SCH (08:57)
[2017-07-18] MEDS: PANTOPRAZOLE SODIUM 40 MG/VIAL IVP SCH (08:57)
[2017-07-18] MEDS: LOSARTAN POTASSIUM 50 MG TABLET PO SCH (08:57)
[2017-07-18] MEDS: ALLOPURINOL 100 MG TABLET PO SCH (08:58)
[2017-07-18] MEDS: CARVEDILOL 12.5 MG TABLET PO SCH ×2 (08:58→20:23)
[2017-07-18] MEDS: ASPIRIN 81 MG CHEWABLE TABLET PO SCH (08:58)
[2017-07-18] MEDS: MONTELUKAST SODIUM 10 MG TABLET PO SCH (08:58)
[2017-07-18] MEDS: VITAMIN B COMP/VIT C/FOLIC ACID CAPSULE PO SCH (08:58)
[2017-07-18] MEDS: MIRTAZAPINE 30 MG TABLET PO SCH (08:59)
[2017-07-18] MEDS: DOCUSATE SODIUM 100 MG CAPSULE PO SCH ×2 (08:59→20:23)
[2017-07-18] MEDS: CINACALCET HCL 30 MG TABLET PO SCH ×2 (08:59→17:59)
[2017-07-18 11:33] VITALS: BP 152/70
[2017-07-18 15:35] VITALS: BP 155/66
[2017-07-18] MEDS: OxyCODONE HCL/ACETAMINOPHEN 5-325 MG TABLET PO PRN (16:15)
[2017-07-18 19:30] VITALS: BP 137/58
[2017-07-18] MEDS: INSULIN DETEMIR 100 UNITS/ML SQ SCH (20:29)
[2017-07-18 23:17] LABS: GLUCOSE,POINT OF CARE 167 MG/DL (70-110)
[2017-07-18 23:22] LABS: GLUCOSE,POINT OF CARE 87 MG/DL (70-110)
[2017-07-18 23:22] LABS: GLUCOSE,POINT OF CARE 86 MG/DL (70-110)
[2017-07-18 23:22] LABS: GLUCOSE,POINT OF CARE 123 MG/DL (70-110)
[2017-07-18 23:22] LABS: GLUCOSE,POINT OF CARE 60 MG/DL (70-110)
[2017-07-18 23:22] LABS: GLUCOSE,POINT OF CARE 196 MG/DL (70-110)
[2017-07-18 23:32] LABS: GLUCOSE COMMENT 1 Received Meds; GLUCOSE,POINT OF CARE 178 MG/DL (70-110)
[2017-07-18 23:32] LABS: GLUCOSE,POINT OF CARE 166 MG/DL (70-110)
[2017-07-18 23:32] LABS: GLUCOSE COMMENT 1 Received Meds; GLUCOSE,POINT OF CARE 154 MG/DL (70-110)
[2017-07-19] VITALS (7 sets, daily range): BP systolic 125–183; BP diastolic 51–98
[2017-07-19 05:37] LABS: GLUCOSE COMMENT 1 Received Meds; GLUCOSE,POINT OF CARE 184 MG/DL (70-110)
[2017-07-19 05:37] LABS: GLUCOSE COMMENT 1 Received Meds; GLUCOSE,POINT OF CARE 143 MG/DL (70-110)
[2017-07-19 05:37] LABS: GLUCOSE,POINT OF CARE 160 MG/DL (70-110)
[2017-07-19 05:37] LABS: GLUCOSE,POINT OF CARE 125 MG/DL (70-110)
[2017-07-19 06:42] LABS: BASOPHILS % (AUTO) 0.2 % (0.0-2.0); EOSINOPHILS % (AUTO) 1.9 % (1.0-6.0); HEMATOCRIT 32.7 % (41-53); HEMOGLOBIN 10.5 g/dL (13.5-17.5); LYMPHOCYTES % (AUTO) 7.7 % (22.0-44.0); MEAN CORPUSCULAR HEMOGLOBIN 24.7 pg (26.0-34.0); MEAN CORPUSCULAR HGB CONC 32.2 G/dL (31.0-37.0); MEAN CORPUSCULAR VOLUME 77 fL (80-100); MONOCYTES % (AUTO) 7.8 % (2.0-9.0); NEUTROPHILS % (AUTO) 82.4 % (40.0-70.0); PLATELET COUNT (AUTO) 308 K/uL (150-450); RED BLOOD CELL COUNT(AUTO) 4.26 MIL/uL (4.50-5.90); RED CELL DISTRIBUTION WIDTH 19.2 % (11.5-14.5); WHITE BLOOD COUNT (AUTO) 13.3 K/uL (4.5-11.0)
[2017-07-19 07:02] LABS: CALCIUM, TOTAL 9.1 mg/dL (8.8-10.5); CREATININE 8.11 mg/dL (0.60-1.30); MAGNESIUM 2.4 mg/dL (1.80-2.40); PHOSPHORUS 3.1 mg/dL (2.5-4.9); POTASSIUM 4.3 mmol/L (3.5-5.1)
[2017-07-19 08:10] LABS: RBC MORPHOLOGY COMMENT ABNORMAL RBC MORPH
[2017-07-19] MEDS: CINACALCET HCL 30 MG TABLET PO SCH ×2 (10:28→17:37)
[2017-07-19] MEDS: PANTOPRAZOLE SODIUM 40 MG/VIAL IVP SCH (10:29)
[2017-07-19] MEDS: ASPIRIN 81 MG CHEWABLE TABLET PO SCH (10:29)
[2017-07-19] MEDS: MIRTAZAPINE 30 MG TABLET PO SCH (10:29)
[2017-07-19] MEDS: MONTELUKAST SODIUM 10 MG TABLET PO SCH (10:29)
[2017-07-19] MEDS: SEVELAMER CARBONATE 800 MG TABLET PO SCH ×3 (10:29→17:36)
[2017-07-19] MEDS: VITAMIN B COMP/VIT C/FOLIC ACID CAPSULE PO SCH (10:30)
[2017-07-19] MEDS: ATORVASTATIN CALCIUM 40 MG TABLET PO SCH (10:30)
[2017-07-19] MEDS: DOCUSATE SODIUM 100 MG CAPSULE PO SCH ×2 (10:30→21:24)
[2017-07-19] MEDS: ALLOPURINOL 100 MG TABLET PO SCH (10:30)
[2017-07-19] MEDS: OXYGEN THERAPY IH SCH ×2 (10:45→20:24)
[2017-07-19] MEDS: LOSARTAN POTASSIUM 50 MG TABLET PO SCH (13:01)
[2017-07-19] MEDS: EPOETIN ALFA 10,000 UNITS/ML VIAL SQ SCH (13:02)
[2017-07-19] MEDS: CARVEDILOL 12.5 MG TABLET PO SCH ×2 (13:02→21:24)
[2017-07-19] MEDS: INSULIN ASPART 100 UNITS/ML SQ PRN (17:48)
[2017-07-19 18:37] LABS: GLUCOSE,POINT OF CARE 125 MG/DL (70-110)
[2017-07-19 18:37] LABS: GLUCOSE,POINT OF CARE 77 MG/DL (70-110)
[2017-07-19 18:37] LABS: GLUCOSE,POINT OF CARE 135 MG/DL (70-110)
[2017-07-19 19:52] LABS: GLUCOSE,POINT OF CARE 218 MG/DL (70-110)
[2017-07-19] MEDS ORDERED: GuaiFENesin/D-METHORPHAN [SUGAR-FREE] 200-20MG/10 ML SYRUP UDCUP PO PRN (20:15)
[2017-07-19] MEDS: INSULIN DETEMIR 100 UNITS/ML SQ SCH (21:00)
[2017-07-20 04:43] VITALS: BP 133/64
[2017-07-20 05:42] LABS: GLUCOSE,POINT OF CARE 164 MG/DL (70-110)
[2017-07-20] MEDS: INSULIN ASPART 100 UNITS/ML SQ PRN ×2 (06:31→12:24)
[2017-07-20 06:40] LABS: BASOPHILS % (AUTO) 0.2 % (0.0-2.0); EOSINOPHILS % (AUTO) 1.6 % (1.0-6.0); HEMATOCRIT 35.5 % (41-53); HEMOGLOBIN 11.2 g/dL (13.5-17.5); LYMPHOCYTES # (AUTO) 1.1 K/uL (1.0-4.8); LYMPHOCYTES % (AUTO) 9.8 % (22.0-44.0); MEAN CORPUSCULAR HEMOGLOBIN 24.4 pg (26.0-34.0); MEAN CORPUSCULAR HGB CONC 31.6 G/dL (31.0-37.0); MEAN CORPUSCULAR VOLUME 77 fL (80-100); MONOCYTES # (AUTO) 1.1 K/uL (0.1-1.0); MONOCYTES % (AUTO) 9.2 % (2.0-9.0); NEUTROPHILS # (AUTO) 9.2 K/uL (1.8-7.7); NEUTROPHILS % (AUTO) 79.2 % (40.0-70.0); PLATELET COUNT (AUTO) 283 K/uL (150-450); RED CELL DISTRIBUTION WIDTH 19.5 % (11.5-14.5); WHITE BLOOD COUNT (AUTO) 11.6 K/uL (4.5-11.0)
[2017-07-20 07:43] LABS: CALCIUM, TOTAL 9.1 mg/dL (8.8-10.5); CREATININE 6.31 mg/dL (0.60-1.30); MAGNESIUM 2.1 mg/dL (1.80-2.40); POTASSIUM 4.6 mmol/L (3.5-5.1)
[2017-07-20] MEDS: OXYGEN THERAPY IH SCH (08:00)
[2017-07-20 08:28] VITALS: BP 139/63
[2017-07-20] MEDS: PANTOPRAZOLE SODIUM 40 MG/VIAL IVP SCH (08:56)
[2017-07-20] MEDS: SEVELAMER CARBONATE 800 MG TABLET PO SCH ×2 (08:57→12:21)
[2017-07-20] MEDS: CINACALCET HCL 30 MG TABLET PO SCH (08:57)
[2017-07-20] MEDS: DOCUSATE SODIUM 100 MG CAPSULE PO SCH (08:58)
[2017-07-20] MEDS: CARVEDILOL 12.5 MG TABLET PO SCH (08:58)
[2017-07-20] MEDS: VITAMIN B COMP/VIT C/FOLIC ACID CAPSULE PO SCH (08:58)
[2017-07-20] MEDS: ASPIRIN 81 MG CHEWABLE TABLET PO SCH (08:58)
[2017-07-20] MEDS: LOSARTAN POTASSIUM 50 MG TABLET PO SCH (08:59)
[2017-07-20] MEDS: ATORVASTATIN CALCIUM 40 MG TABLET PO SCH (08:59)
[2017-07-20] MEDS: MONTELUKAST SODIUM 10 MG TABLET PO SCH (08:59)
[2017-07-20] MEDS: ALLOPURINOL 100 MG TABLET PO SCH (08:59)
[2017-07-20] MEDS: MIRTAZAPINE 30 MG TABLET PO SCH (09:00)
[2017-07-20 11:52] VITALS: BP 151/70
[2017-07-20] MEDS ORDERED: EPOE10003 SQ (14:10)
[2017-07-28 23:53] LABS: GLUCOSE COMMENT 1 Received Meds; GLUCOSE,POINT OF CARE 163 MG/DL (70-110)
[2017-07-28 23:53] LABS: GLUCOSE COMMENT 1 Received Meds; GLUCOSE,POINT OF CARE 159 MG/DL (70-110)
[2017-08-08] MEDS ORDERED: BUDE10.2 IH (19:36)
== END 2017-07-20 14:50 | disposition home or self-care (01) | DRG 291 ==
LOC: EMS 07:24 → 5S 12:06
PROVIDERS: ADMIT Internal Medicine; ATTEND Internal Medicine
PROC: 0W993ZZ Drainage of Right Pleural Cavity, Percutaneous Approach (ICD-10-PCS; principal; 2017-07-16)
PROC: 5A1D70Z Performance of Urinary Filtration, Intermittent, Less than 6 Hours Per Day (ICD-10-PCS; 2017-07-17)
PROC: 5A1D70Z Performance of Urinary Filtration, Intermittent, Less than 6 Hours Per Day (ICD-10-PCS; 2017-07-19)
DX: I13.2 Hypertensive heart and chronic kidney disease with heart failure and with stage 5 chronic kidney disease, or end stage renal disease (principal); N18.6 End stage renal disease; J90 Pleural effusion, not elsewhere classified; E11.22 Type 2 diabetes mellitus with diabetic chronic kidney disease; Z86.73 Personal history of transient ischemic attack (TIA), and cerebral infarction without residual deficits; I25.10 Atherosclerotic heart disease of native coronary artery without angina pectoris; D64.9 Anemia, unspecified
CPT/HCPCS: 32555; 71250; 76942; 82465; 82945; 82962; 83540; 83550; 83615; 83735; 83986; 84100; 84145; 84157; 87015; 87040; 87070; 87101; 87205; 87340; 87804; 88108; 89051; 90935; 93005; 99285; C9113; J0885

== ENCOUNTER 2017-09-27 20:50 | Emergency (ER) | payer OTHER ==
[~2017-09-27] VITALS: Ht 165.1 cm; Wt 72.7 kg
[~2017-09-27 20:50] MED LIST changes: +BUDE10.2 IH; +EPOE10003 SQ
[2017-09-28 00:09] VITALS: BP 120/66
== END 2017-09-28 00:26 | disposition home or self-care (01) ==
LOC: EMS 20:52
DX: T82.838A Hemorrhage due to vascular prosthetic devices, implants and grafts, initial encounter (principal); I12.0 Hypertensive chronic kidney disease with stage 5 chronic kidney disease or end stage renal disease; E11.22 Type 2 diabetes mellitus with diabetic chronic kidney disease; N18.6 End stage renal disease; J45.909 Unspecified asthma, uncomplicated; Z99.2 Dependence on renal dialysis; Z88.1 Allergy status to other antibiotic agents; Z79.4 Long term (current) use of insulin; Z79.899 Other long term (current) drug therapy; Z79.82 Long term (current) use of aspirin
CPT/HCPCS: 99283